=== PATIENT | male | born 1970 | race Caucasian/White ===

== ENCOUNTER → 2019-10-03 10:42 | Outpatient (BNVA) | payer MEDICAID, SELFPAY | PROVIDERS: Family Provider Family Medicine; PCP Family Medicine; Referring Provider Family Medicine; Visit Provider Podiatrist Foot & Ankle Surgery | DX: M79.672 Pain in left foot (principal); M79.89 Other specified soft tissue disorders; M20.42 Other hammer toe(s) (acquired), left foot | CPT/HCPCS: 73620; 73630 ==

== ENCOUNTER → 2019-11-20 12:34 | Outpatient (BNVA) | payer MEDICAID, SELFPAY | PROVIDERS: Family Provider Family Medicine; PCP Family Medicine; Referring Provider Family Medicine; Visit Provider Specialist | DX: G43.711 Chronic migraine without aura, intractable, with status migrainosus (principal); F17.210 Nicotine dependence, cigarettes, uncomplicated | CPT/HCPCS: 99204; 99214 ==

== ENCOUNTER → 2019-11-28 10:04 | Outpatient (BNVA) | payer MEDICAID, SELFPAY | PROVIDERS: Family Provider Family Medicine; PCP Family Medicine; Visit Provider Nurse Practitioner Psychiatric/Mental Health | DX: F33.3 Major depressive disorder, recurrent, severe with psychotic symptoms (principal); F41.1 Generalized anxiety disorder; F12.20 Cannabis dependence, uncomplicated; F17.210 Nicotine dependence, cigarettes, uncomplicated; F03.91 Unspecified dementia, unspecified severity, with behavioral disturbance | CPT/HCPCS: 99214 ==

== ENCOUNTER → 2020-01-01 08:15 | Outpatient (BNVA) | payer MEDICAID, SELFPAY | PROVIDERS: Family Provider Family Medicine; PCP Family Medicine; Visit Provider Nurse Practitioner Psychiatric/Mental Health | DX: F33.3 Major depressive disorder, recurrent, severe with psychotic symptoms (principal); F41.1 Generalized anxiety disorder; F12.20 Cannabis dependence, uncomplicated; F17.210 Nicotine dependence, cigarettes, uncomplicated; F03.91 Unspecified dementia, unspecified severity, with behavioral disturbance | CPT/HCPCS: 99214 ==

== ENCOUNTER → 2020-02-13 12:01 | Outpatient (BNVA) | payer MEDICAID, SELFPAY | PROVIDERS: Family Provider Family Medicine; PCP Family Medicine; Visit Provider Specialist | DX: G43.711 Chronic migraine without aura, intractable, with status migrainosus (principal); F17.210 Nicotine dependence, cigarettes, uncomplicated | CPT/HCPCS: 99213 ==

== ENCOUNTER → 2020-02-15 08:05 | Outpatient (BNVA) | payer MEDICAID, SELFPAY | PROVIDERS: Family Provider Family Medicine; PCP Family Medicine; Visit Provider Nurse Practitioner Psychiatric/Mental Health | DX: F33.3 Major depressive disorder, recurrent, severe with psychotic symptoms (principal); F41.1 Generalized anxiety disorder; F12.20 Cannabis dependence, uncomplicated; F17.210 Nicotine dependence, cigarettes, uncomplicated; F03.91 Unspecified dementia, unspecified severity, with behavioral disturbance | CPT/HCPCS: 99214 ==

== ENCOUNTER → 2020-03-06 09:42 | Outpatient (BNVA) | payer MEDICAID, SELFPAY | PROVIDERS: Family Provider Family Medicine; PCP Family Medicine; Visit Provider Specialist | DX: G43.711 Chronic migraine without aura, intractable, with status migrainosus (principal) | CPT/HCPCS: 64615; J0585 ==

== ENCOUNTER → 2020-03-21 07:41 | Outpatient (BNVA) | payer MEDICAID, SELFPAY | PROVIDERS: Family Provider Family Medicine; PCP Family Medicine; Visit Provider Nurse Practitioner Psychiatric/Mental Health | DX: F33.3 Major depressive disorder, recurrent, severe with psychotic symptoms (principal); F41.1 Generalized anxiety disorder; F17.210 Nicotine dependence, cigarettes, uncomplicated; F13.11 Sedative, hypnotic or anxiolytic abuse, in remission; F12.20 Cannabis dependence, uncomplicated; F03.91 Unspecified dementia, unspecified severity, with behavioral disturbance | CPT/HCPCS: 99214 ==

== ENCOUNTER 2020-03-27 11:22 | Inpatient (IN) | payer MEDICAID, SELFPAY ==
[2020-03-27 11:25] VITALS: BP 164/95; PULSE 71; RESP 16; TEMP 36.7; O2SAT 98; BMI 25.8
[2020-03-27 11:45] LABS: Basophils % 0.5 %; Eosinophils # 0.1 10^3/uL (0.0-0.8); Eosinophils % 1.1 %; Hematocrit 45.9 % (42.0-52.0); Hemoglobin 15.7 g/dL (11.7-16.6); Lymphocytes # 2.4 10^3/uL (0.8-4.8); Lymphocytes % 38.7 %; Mean Corpuscular HGB Conc 34.2 g/dL (30.0-36.0); Mean Corpuscular Hemoglobin 30.4 pg (28.0-34.0); Monocytes # 0.5 10^3/uL (0.2-0.9); Monocytes % 8.2 %; Neutrophils # 3.19 10^3/uL (1.8-7.7); Neutrophils % 51.3 %; Nucleated Red Blood Cells % 0 %; Platelet Count 277 10^3/cmm (130-400); Red Blood Count 5.16 10^6/uL (4.1-5.3); Red Cell Distribution Width 12.8 % (12.1-15.1); White Blood Count 6.2 10^3/uL (4.0-10.0)
[2020-03-27 12:00] LABS: Alanine Aminotransferase 10 U/L (0-41); Alkaline Phosphatase 87 IU/L (40-130); Anion Gap 14.7 (5-19); Aspartate Amino Transferase 13 U/L (0-40); Blood Urea Nitrogen 6 mg/dL (6-20); Calcium 9.4 mg/dL (8.5-10.5); Carbon Dioxide 24 mmol/L (22-29); Chloride 102 mmol/L (98-107); Globulin 2.1 g/dL (1.3-4.6); Glomerular Filtration Rate 102.7 mL/min (90-130); Glucose 109 mg/dL (65-115); Osmolality Calculated 280 mOsm/kg (285-295); Potassium 3.7 mmol/L (3.5-5.1); Sodium 137 mmol/L (136-145); Total Bilirubin 0.4 mg/dL (0.15-1.2); Total Protein 7.1 g/dL (6.6-8.7)
[2020-03-27 12:03] LABS: Amphetamines Screen Urine Negative (Negative); Barbiturates Screen Urine Negative (Negative); Benzodiazepines Screen Urine Negative (Negative); Cocaine Screen Urine Negative (Negative); Opiate Screen Urine Negative (Negative); PCP Screen Urine Negative (Negative); THC Screen Urine Positive (Negative)
--- NOTE | 2020-03-27 12:14 | ED_ITS ---
HPI - Psych General: Chief Complaint: Psychiatric Symptoms Stated Complaint: SI Time Seen by Provider: 03/27/20 11:24 History of Present Illness: HPI Narrative: Patient reports suicidal thoughts for the past several days. He also has auditory and visual hallucinations. He hears voices telling him to kill himself. He also sees people that he knows are not there. MD complaint: suicidal ideation and feels depressed Onset (ago): day(s) Duration: constant and getting worse History of same: No Relieving factors: none Exacerbating factors: none Context: recent drug abuse Associated psychiatric symptoms: depression, suicidal ideation, auditory hallucinations and visual hallucinations Associated symptoms: Reports auditory hallucinations, visual hallucinations, depression and suicidal ideation Treatments prior to arrival: none If self harm: admits thoughts of self harm Review of Systems General: Reports: 10 or more systems reviewed and unremarkable except in HPI and below Psych: Reports: depression, visual hallucinations, auditory hallucinations and suicidal ideation PFS ED PFSH: Medical History Anxiety Benzodiazepine abuse in remission In early remission Cannabis dependence, continuous Dementia Depression Generalized anxiety disorder Major depressive disorder, recurrent episode with mood-congruent psychotic features Nicotine dependence, cigarettes, uncomplicated Family History Other CAD (coronary artery disease) Cancer Diabetes Hypertension Denies family history of Stroke Social History Smoking and tobacco status: current every day smoker cigarettes Packs smoked per day: 0.5 Alcohol intake: never History of recent travel: Yes (travels from [facility]) Physical Exam Const: COMMON NORMALS: no acute distress, patient oriented x3, no limitations and alert HENMT: COMMON NORMALS: normocephalic, atraumatic, external ears normal and Normal external nose present HEAD & SCALP: normocephalic and atraumatic FACE & SINUS: normal facial exam NOSE: Normal external nose present EX TERNAL EAR: Yes external ears normal MOUTH: Normal oral and palatal mucosa present Neck/C-Spine: COMMON NORMALS: full ROM, no lymphadenopathy, supple, no meningeal signs and no JVD GENERAL: Yes normal visual inspection Resp: COMMON NORMALS: normal respiratory effort, No retractions, No use of accessory muscles and clear to auscultation bilaterally AUSCULTATION: clear to auscultation bilaterally Cardio: COMMON NORMALS: no JVD, regular rate and regular rhythm RATE: re gular rate RHYTHM: regular rhythm GI: COMMON NORMALS: Normal to inspection, nondistended, normoactive bowel sounds present, Soft to palpation, non-tender, No hepatosplenomegaly present and no masses INSPECTION: Yes normal to inspection AUSCULTATION: Yes normoactive bowel sounds PALPATION: Yes Soft to palpation and Yes No hepatosplenomegaly present PERCUSSION: normal to percussion : COMMON NORMALS: Yes no CVA tenderness BLADDER/KIDNEY EXAM: Yes no CVA tenderness Back/Pelvis: COMMON NORMALS: no CVA tenderness, thoracic and lumbar spine normal to inspection, no thoracic nor lumbar tenderness, thoraco-lumbar ROM normal and straight leg raise negative bilaterally Extremity: COMMON NORMALS: normal to inspection, full ROM, capillary refill normal, no joint enlargement, no clubbing, cyanosis or edema, no calf tenderness and no pedal edema Neuro: COMMON NORMALS: patient oriented x3, moves all extremities, no focal motor deficits and no sensory deficits noted SENSORIUM/ORIENTATION: Yes alert MENINGEAL SIGNS: Yes no meningeal signs Psych: COMMON NORMALS: mental status grossly normal, cooperative and speech normal APPEARANCE: Yes grossly normal ATTITUDE: Yes calm and Yes Withdrawn affect present ACTIVITY/MOTOR BEHAVIOR: Yes appropriate eye contact and Yes p sychomotor slowing SPEECH: Yes normal speech MOOD & AFFECT: Yes depressed mood THOUGHT CONTENT: Yes Suicidality present and Yes Hallucination(s) present ATTENTION/CONCENTRATION: Yes attention grossly intact and Yes concentration grossly intact MEMORY/COGNITION: Yes memory grossly intact and Yes memory grossly impaired INSIGHT: Good insight present (Psych) JUDGEMENT: questionable Skin: COMMON NORMALS: no rashes or lesions noted, no wounds, turgor normal, no jaundice, no petechiae and no mottling GENERAL SKIN EXAM: no rashes or lesion s noted and turgor normal MDM - Psych Lab Data: Labs: Lab Results 03/27/20 03/27/20 03/27/20 Range/Units 11:29 11:29 11:46 WBC 6.2 (4.0-10.0) 10^3/ uL RBC 5.16 (4.1-5.3) 10^6/u L Hgb 15.7 (11.7-16.6) g/dL Hct 45.9 (42.0-52.0) % MCV 89.0 (80-94) fL MCH 30.4 (28.0-34.0) pg MCHC 34.2 (30.0-36.0) g/dL RDW 12.8 (12.1-15.1) % Plt Count 277 (130-400) 10^3/c mm MPV 10.0 (7.4-10.4) fL Neut % (Auto) 51.3 % Lymph % (Auto) 38.7 % Sunflower % (Auto) 8.2 % Eos % (Auto) 1.1 % Baso % (Auto) 0.5 % Neut # (Auto) 3.19 (1.8-7.7) 10^3/u L Lymph # (Auto) 2.4 (0.8-4.8) 10^3/u L Sunflower # (Auto) 0.5 (0.2-0.9) 10^3/u L Eos # (Auto) 0.1 (0.0-0.8) 10^3/u L Baso # (Auto) 0.0 (0.0-0.1) 10^3/u L Nucleated RBC % (a uto) 0 % Nucleated RBCs # 0.0 /100WBC Sodium 137 (136-145) mmol/L Potassium 3.7 (3.5-5.1) mmol/L Chloride 102 (98-107) mmol/L Carbon Dioxide 24 (22-29) mmol/L Anion Gap 14.7 (5-19) BUN 6 (6-20) mg/dL Creatinine 0.8 (0.7-1.2) mg/dL GFR Calculation 102.7 (90-130) mL/min Glucose 109 (65-115) mg/dL Calculated Osmolal ity 280 L (285-295) mOsm/k g Calcium 9.4 (8.5-10.5) mg/dL Total Bilirubin 0.4 (0.15-1.2) mg/dL AST 13 (0-40) U/L ALT 10 (0-41) U/L Alkaline Phosphata se 87 (40-130) IU/L Total Protein 7.1 (6.6-8.7) g/dL Albumin 5.0 (3.5-5.2) g/dL Globulin 2.1 (1.3-4.6) g/dL Salicylates < 0.3 L (3-10) mg/dL Urine Opiates Scre en Negative (Negative) ng/mL Acetaminophen < 5.0 L (10-30) ug/mL Ur Barbiturates Sc reen Negative (Negative) ng/mL Ur Phencyclidine S crn Negative (Negative) ng/mL Ur Amphetamines Sc reen Negative (Negative) ng/mL U Benzodiazepines Scrn Negative (Negative) ng/mL Urine Cocaine Scre en Negative (Negative) ng/mL U Marijuana (THC) Screen Positive H (Negative) ng/mL Ethyl Alcohol < 10 (0-10) mg/dL Discharge Plan Discharge Patient Disposition: Admitted As Inpatient Clinical Impression: Acute psychosis, Suicidal ideation Depression Qualifiers: Depression Type: major depressive disorder Major depression recurrence: unspecified whether recurrent Active/Remission status: currently active Major depression episode severity: severe Psychotic features: with psychotic features Qualified Code(s): F32.3 - Major depressive disorder, single episode, severe with psychotic features Condition: Fair Referrals: Kevin Tovar MD [Primary Care Provider] - Coding Level of Care Code ED Can Doffer for g Fwd Exam Comprehensive
[2020-03-27 12:17] LABS: Acetaminophen < 5.0 ug/mL (10-30); Alcohol Level < 10 mg/dL (0-10); Salicylate < 0.3 mg/dL (3-10)
[2020-03-27 12:51] VITALS: BP 150/93; PULSE 78; RESP 18; O2SAT 96
[2020-03-27 13:27] VITALS: BP 132/80; PULSE 79; RESP 18; TEMP 36.7; O2SAT 98
[2020-03-27] MEDS: nicotine 21 mg Patch 1 PATCH TRANSDERMA (13:34)
[2020-03-27] MEDS: OLANZapine 5 mg ODT PO (13:47)
--- NOTE | 2020-03-27 13:47 | PC.NURSE ---
PT NOTE: PT GIVEN ZYPREXA ZYDIS 5MG PO FOR ANXIETY.
[2020-03-27] MEDS: lactulose oral liq 20 gm/30 mL UDC PO (18:37)
[2020-03-27] MEDS: propranolol 20 mg Tablet PO (18:37)
[2020-03-27 20:26] VITALS: BP 135/83; PULSE 68; RESP 17; TEMP 36.5; O2SAT 97
[2020-03-27] MEDS: hyDROXYzine 25 mg Capsule 50 MG PO (21:02)
[2020-03-27] MEDS: mirtazapine 30 mg Tablet PO (21:03)
[2020-03-27] MEDS: risperiDONE 2 mg Tablet PO (21:03)
[2020-03-27] MEDS: gabapentin 300 mg Capsule PO (21:03)
[2020-03-27] MEDS: trazodone 50 mg Tablet PO (21:03)
--- NOTE | 2020-03-28 04:15 | PC.NURSE ---
pt given PRN trazodone, vistaril and nicorette gum with HS meds per request. no behavior issues noted.
[2020-03-28 06:00] VITALS: BP 161/93; PULSE 73; RESP 17; TEMP 36.8; O2SAT 97
[2020-03-28] MEDS: memantine 5 mg tablet 10 MG PO (06:02)
[2020-03-28] MEDS: buPROPion XL (24 HR) 150 mg Tablet PO (06:02)
[2020-03-28] MEDS: buPROPion XL (24 HR) 300 mg Tablet PO (06:02)
[2020-03-28] MEDS: lactulose oral liq 20 gm/30 mL UDC PO ×2 (06:02→17:44)
[2020-03-28] MEDS: propranolol 20 mg Tablet PO ×2 (08:22→17:44)
[2020-03-28] MEDS: pantoprazole DR 40 mg Tablet PO (08:23)
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
[2020-03-28 14:00] VITALS: BP 133/86; PULSE 79; RESP 18; TEMP 36.8; O2SAT 98
[2020-03-28] MEDS: gabapentin 100 mg Capsule PO ×2 (14:17→17:44)
[2020-03-28] MEDS: nicotine 2 mg Gum BUCCAL (20:10)
[2020-03-28 20:24] VITALS: BP 156/94; PULSE 79; RESP 17; TEMP 36.6; O2SAT 96
[2020-03-28] MEDS: risperiDONE 2 mg Tablet PO (20:33)
[2020-03-28] MEDS: mirtazapine 30 mg Tablet PO (20:33)
[2020-03-28] MEDS: gabapentin 300 mg Capsule PO (20:33)
[2020-03-28] MEDS: hyDROXYzine 25 mg Capsule 50 MG PO (20:33)
[2020-03-28] MEDS: trazodone 50 mg Tablet PO (20:34)
[2020-03-28] MEDS: lactulose oral liq 20 gm/30 mL UDC 30 GM PO (20:42)
--- NOTE | 2020-03-28 21:33 | PC.NURSE ---
pt given scheduled HS meds and PRN nicorette gum, trazodone, vistaril, and lactulose per request.
[2020-03-28 22:00] VITALS: BP 156/94; PULSE 79; RESP 17; TEMP 36.6; O2SAT 96
[2020-03-29 06:00] VITALS: BP 130/81; PULSE 73; RESP 16; TEMP 36.6; O2SAT 97
[2020-03-29] MEDS: buPROPion XL (24 HR) 300 mg Tablet PO (06:09)
[2020-03-29] MEDS: buPROPion XL (24 HR) 150 mg Tablet PO (06:10)
[2020-03-29] MEDS: memantine 5 mg tablet 10 MG PO (06:10)
[2020-03-29] MEDS: acetaminophen 325 mg Tablet 650 MG PO ×2 (06:18→16:10)
[2020-03-29] MEDS: lactulose oral liq 20 gm/30 mL UDC 30 GM PO (09:15)
[2020-03-29] MEDS: pantoprazole DR 40 mg Tablet PO (09:16)
[2020-03-29] MEDS: propranolol 20 mg Tablet PO ×2 (09:16→18:52)
[2020-03-29] MEDS: gabapentin 100 mg Capsule PO ×2 (09:16→18:52)
[2020-03-29] MEDS: nicotine 2 mg Gum BUCCAL (10:32)
[2020-03-29] MEDS: lactulose oral liq 20 gm/30 mL UDC PO ×2 (10:34→18:53)
--- NOTE | 2020-03-29 13:13 | P.PN_ITS ---
Subjective NPU Subjective: Interval history: Soy presents today reporting that he is doing well with the added Neurontin during the day. He reports that it is helping with his anxiety. We discussed likely considering a titration tomorrow. We discussed the risks, benefits, and alternatives of that, and he understood and agreed to proceed as is documented in this note. We talked about making sure that he is setup and connected with his outpatient services, and that he is safe for discharge. Now that he has something that might bring help, he clearly was interested and understanding the timeline, before this flex o writer operator thought he might be discharged to home. Otherwise, he reports he is sleeping fine and doing a little better. Mental Status Exam MSE Comments: This is a well-nourished, well-developed, white male, with adequate dress, grooming, and eye contact. No abnormal movements, except for improving psychomotor retardation. Cooperative with exam in no acute distress. Speech was more normal rate and volume. Mood described as less anxious; affect congruent. Thought process, organized. Thought content: patient endorsed suicidal ideation; there were no delusions reported or noted, patient denied auditory and visual hallucinations. Attention, concentration, and memory appear intact but none were formally tested. He is alert and oriented times three. Insight and judgment are improving. Vitals/I&O/Wt Last Vital Signs Temp 97.9 F 03/29/20 06:00 Pulse 73 03/29/20 06:00 Resp 16 03/29/20 06:00 BP 130/81 03/29/20 06:00 Pulse Ox 97 03/29/20 06:00 Data NPU : 03/27/20 11:29 03/27/20 11:29 A&P Additional A&P Information (1) Acute psychosis: (2) Suicidal ideation: (3) Depression: (4) Benzodiazepine abuse in remission: (5) Cannabis dependence, continuous: (6) Generalized anxiety disorder: (7) Dementia: This is a 49 year old, white male, with a long history of trauma and addiction, including alcohol and other drugs, who presents endorsing depression and anxiety, but reporting improvement in his depression and anxiety, resolving lethality reports that he is doing well on the medication. RECOMMENDATION AND PLAN: Continue current medication, except: Continue Neurontin 100 mg po, will possibly increase to 300 mg tid, as he already has a 300 mg dose at night. Continue q-15 minute checks for safety. Encourage individual, group, and milieu therapy. Involuntary Hold Information 96 Hour Hold: 96 Hour Involuntary Admission: No Attestations NPU Medical Necessity Statement*: Inpatient hospitalization is medically necessary and the clinically appropriate intervention at this time. We will monitor medications and make changes as indicated. Likely length of stay is 1-3 days. Coding Level of Care Code Acute Automobile Insurance Claim Examiner for Willian Gramajo
[2020-03-29 14:00] VITALS: BP 121/85; PULSE 92; RESP 18; TEMP 37.2
[2020-03-29] MEDS: hyDROXYzine 25 mg Capsule 50 MG PO (21:13)
[2020-03-29] MEDS: mirtazapine 30 mg Tablet PO (21:13)
[2020-03-29] MEDS: gabapentin 300 mg Capsule PO (21:13)
[2020-03-29] MEDS: risperiDONE 2 mg Tablet PO (21:13)
[2020-03-29] MEDS: OLANZapine 5 mg ODT PO (21:13)
[2020-03-29 22:00] VITALS: BP 141/93; PULSE 69; RESP 19; TEMP 36.6; O2SAT 98
--- NOTE | 2020-03-30 00:55 | PC.NURSE ---
pt given scheduled HS meds as well as PRN vistaril and zyprexa per pt request.
[2020-03-30 06:00] VITALS: BP 136/90; PULSE 82; RESP 17; TEMP 36.9; O2SAT 96
[2020-03-30] MEDS: lactulose oral liq 20 gm/30 mL UDC PO (06:12)
[2020-03-30] MEDS: memantine 5 mg tablet 10 MG PO (06:12)
[2020-03-30] MEDS: buPROPion XL (24 HR) 300 mg Tablet PO (06:12)
[2020-03-30] MEDS: buPROPion XL (24 HR) 150 mg Tablet PO (06:12)
[2020-03-30] MEDS: pantoprazole DR 40 mg Tablet PO (09:19)
[2020-03-30] MEDS: gabapentin 100 mg Capsule PO (09:19)
[2020-03-30] MEDS: propranolol 20 mg Tablet PO (09:19)
[2020-03-30 11:41] VITALS: BP 136/90; PULSE 82; RESP 17; TEMP 36.9; O2SAT 96
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
== END 2020-03-30 13:15 | disposition home or self-care (01) | DRG 885 ==
LOC: ER 12:21 → NP 12:44
PROVIDERS: Physician Assistant; Admitting Provider Psychiatry & Neurology Psychiatry; PCP Family Medicine; Visit Provider Psychiatry & Neurology Psychiatry
DX: F23 Brief psychotic disorder (principal); R45.851 Suicidal ideations; F32.3 Major depressive disorder, single episode, severe with psychotic features; F11.11 Opioid abuse, in remission; F12.20 Cannabis dependence, uncomplicated; F41.1 Generalized anxiety disorder; F03.90 Unspecified dementia, unspecified severity, without behavioral disturbance, psychotic disturbance, mood disturbance, and anxiety; Z81.8 Family history of other mental and behavioral disorders; F17.210 Nicotine dependence, cigarettes, uncomplicated
CPT/HCPCS: 12345; 36415; 80053; 80306; 80307; 85025; 99284; 99285

== ENCOUNTER → 2020-04-11 08:37 | Outpatient (BNVA) | payer MEDICAID, SELFPAY | PROVIDERS: PCP Family Medicine; Visit Provider Nurse Practitioner Psychiatric/Mental Health | DX: F33.3 Major depressive disorder, recurrent, severe with psychotic symptoms (principal); F41.1 Generalized anxiety disorder; F12.20 Cannabis dependence, uncomplicated; F17.210 Nicotine dependence, cigarettes, uncomplicated; F03.91 Unspecified dementia, unspecified severity, with behavioral disturbance; F13.11 Sedative, hypnotic or anxiolytic abuse, in remission | CPT/HCPCS: 99214 ==

== ENCOUNTER → 2020-05-29 09:52 | Outpatient (BNVA) | payer MEDICAID, SELFPAY | PROVIDERS: PCP Family Medicine; Visit Provider Specialist | DX: G43.711 Chronic migraine without aura, intractable, with status migrainosus (principal) | CPT/HCPCS: 64615; J0585 ==

== ENCOUNTER → 2020-07-02 13:06 | Outpatient (BNVA) | payer MEDICAID, SELFPAY | PROVIDERS: PCP Family Medicine; Visit Provider Counselor Professional | DX: F41.1 Generalized anxiety disorder (principal); F33.2 Major depressive disorder, recurrent severe without psychotic features | CPT/HCPCS: 90832 ==

== ENCOUNTER 2020-08-11 13:48 | Emergency (ER) | payer MEDICAID, SELFPAY ==
[2020-08-11 13:52] VITALS: BP 139/89; PULSE 68; RESP 18; TEMP 36.2; O2SAT 96; BMI 26.5
--- NOTE | 2020-08-11 14:05 | ED_ITS ---
Documented by User: NORBERTO Fitzpatrick 08/11/20 16:39 HPI - Headache General: Chief Complaint: Headache Stated Complaint: MIGRAINE X 7 DAYS Time Seen by Provider: 08/11/20 13:58 History of Present Illness: HPI Narrative: Patient complains about a migraine. Has a history of migraines sees Dr. Jiménez receives Botox for that. Said this started his normal migraine 7 days ago progressively got worse. No medicine has helped him. Was at Dr. Tovar office today Dr. Tovar sent here for possible DHE treatment. Patient states that Imitrex does not work. MD elicited complaint: migraine Pertinent past history: migraines Onset (ago): day(s) Onset description: gradually Location: generalized Severity: severe Quality & Timing: aching Exacerbating factors: light and noise Relieving factors: nothing Context: occurred at rest Associated symptoms: Reports no associated symptoms; Deny chest pain, fever(s), nausea, rash or vomiting Review of Systems Const: Denies: fever(s), chills or body aches Eyes: Denies: change in vision or blurry vision ENMT: Denies: throat pain or nasal congestion Card: Denies: chest pain or dyspnea on exertion Resp: Denies: dyspnea, productive cough or non-productive cough GI: Denies: abdominal pain, nausea or vomiting : Denies: difficulty urinating Musc: Denies: extremity pain Skin/Breast: Denies: rash Neuro: Reports: headache(s) Psych: Denies: anxiety or depression Darrel/Lymph: Denies: easy bruising PFSH ED PFSH: Medical History Anxiety Benzodiazepine abuse in remission In early remission Cannabis dependence, continuous Dementia Depression Generalized anxiety disorder Major depressive disorder, recurrent episode with mood-congruent psychotic features Nicotine dependence, cigarettes, uncomplicated TBI (traumatic brain injury) Family History Other CAD (coronary artery disease) Cancer Diabetes Hypertension Denies family history of Stroke Social History Smoking and tobacco status: current every day smoker cigarettes Packs smoked per day: 0.5 Alcohol intake: never History of recent travel: Yes (travels from [facility]) Current gender identity: Male Physical Exam Const: COMMON NORMALS: no acute distress, average body habitus and patient oriented x3 HENMT: COMMON NORMALS: normocephalic HEAD & SCALP: normal to inspection and normocephalic FACE & SINUS: normal facial exam Eye: COMMON NORMALS: conjunctivae normal GENERAL EYE: appearance normal, both eyes and all related structures CONJUNCTIVA: Yes conjunctivae normal Neck/C-Spine: COMMON NORMALS: no JVD Chest: COMMONS NORMALS: normal inspection of the chest Resp: COMMON NORMALS: normal respiratory effort and clear to auscultation bilaterally AUSCULTATION: clear to auscultation bilaterally Cardio: COMMON NORMALS: no JVD, regular rate and regular rhythm RATE: regular rate RHYTHM: regular rhythm GI: COMMON NORMALS: Normal to inspection, nondistended, normoactive bowel sounds present Extremity: COMMON NORMALS: normal to inspection and full ROM Neuro: COMMON NORMALS: patient oriented x3 Course Vital Signs: Vital signs: Vital Signs Temperature 97.2 F L 08/11/20 13:52 Pulse Rate 62 08/11/20 17:30 Respiratory Rate 20 H 08/11/20 17:30 Blood Pressure 137/82 08/11/20 17:30 Pulse Oximetry 96 08/11/20 17:30 MDM - Headache MDM Narrative: Medical decision making narrative: Patient said cocktail medicines were given first not help with migraine at all and only wanted given some IV Tylenol and he says he cannot take Tylenol and not for sure whether that is Discharge Plan Discharge Patient Disposition: Home Clinical Impression: Migraine Qualifiers: Migraine type: without aura Status migrainosus presence: without status migrainosus Intractability: not intractable Qualified Code(s): G43.009 - Migraine without aura, not intractable, without status migrainosus Condition: Stable Prescriptions: No Action propranolol 20 mg tablet 20 mg PO TID PRN (Reason: anxiety) Qty: 90 RF: 2 Remeron 30 mg tablet 45 mg PO BEDTIME Qty: 45 RF: 2 Botox injection See Rx Instructions .ROUTE .COMPLEX RF: 0 ondansetron 4 mg tablet,disintegrating 4 mg PO Q6H PRN (Reason: nausea and vomiting) Qty: 18 RF: 1 lactulose 10 gram/15 mL solution 30 ml PO BID@ RF: 0 ibuprofen 200 mg Tablet 800 mg PO PRN RF: 0 bupropion HCl 150 mg tablet extended release 24 hr 150 mg PO DAILY@06 RF: 0 pantoprazole 40 mg tablet,delayed release (DR/EC) 40 mg PO DAILY@06 RF: 0 gabapentin 300 mg capsule 300 mg PO DAILY@18 RF: 0 gabapentin 100 mg capsule 100 mg PO BID@06,12 RF: 0 Namenda 10 mg tablet 10 mg PO DAILY@06 RF: 0 Rexulti 4 mg tablet 4 mg PO DAILY@06 RF: 0 Discharge Orders: Discharge ED (Routine); Ordered 08/11/20 Ordered By: Luciano Quinones Referrals: Kevin Tovar MD [Primary Care Provider] - Discharge Diet: Regular Discharge Activity: Resume usual activity Patient Instructions: Migraine Headache (ED) Activity Restrictions/Additional Instructions: Follow-up with medical provider as directed in 7 to 10 days for reevaluation. Continue taking all home medications as previously prescribed. Return to the ER or your medical provider if condition worsens. Please read and understand discharge instructions. If any questions, please ask. Sign Out Sign Out Data: Patient Sign Out occurred on 08/11/20 at 17:02. Patient's care was discussed, and care was transferred from to JUAN Mcdonald. Coding Level of Care Code ED Training Officer for Chg Fwd Exam Comprehensive Documented by User: JUAN Mcdonald 08/12/20 01:16 HPI - Headache General: Chief Complaint: Headache Stated Complaint: MIGRAINE X 7 DAYS Time Seen by Provider: 08/11/20 13:58 PFSH ED PFSH: Medical History Anxiety Benzodiazepine abuse in remission In early remission Cannabis dependence, continuous Dementia Depression Generalized anxiety disorder Major depressive disorder, recurrent episode with mood-congruent psychotic features Nicotine dependence, cigarettes, uncomplicated TBI (traumatic brain injury) Family History Other CAD (coronary artery disease) Cancer Diabetes Hypertension Denies family history of Stroke Social History Smoking and tobacco status: current every day smoker cigarettes Packs smoked per day: 0.5 Alcohol intake: never History of recent travel: Yes (travels from [facility]) Current gender identity: Male Course Reevaluation(s): Reevaluation #1: After patient received first DHE dose he says his migraine has improved and he is ready to go home. I told patient to follow-up with PCP in 7 to 10 days ending come back to the ED if he has any worsening symptoms. Vital Signs: Vital signs: Vital Signs Temperature 97.2 F L 08/11/20 13:52 Pulse Rate 62 08/11/20 17:30 Respiratory Rate 20 H 08/11/20 17:30 Blood Pressure 137/82 08/11/20 17:30 Pulse Oximetry 96 08/11/20 17:30 MDM - Headache MDM Narrative: Medical decision making narrative: I took over patient care from Shar Greenfield at 5 PM. He was sent here to the ED by his PCP for him to receive DHE to treat migraine. He had ordered DHE protocol for migraine treatment. First dose of DHE was administered and patient's migraine improved and he was ready to be discharged. Return to ED precautions given. He was told to follow-up with PCP in 7 to 10 days. Patient understood and agreed with plan. Discharge Plan Discharge Patient Disposition: Home Clinical Impression: Migraine Qualifiers: Migraine type: without aura Status migrainosus presence: without status migrainosus Intractability: not intractable Qualified Code(s): G43.009 - Migraine without aura, not intractable, without status migrainosus Condition: Stable Prescriptions: No Action propranolol 20 mg tablet 20 mg PO TID PRN (Reason: anxiety) Qty: 90 RF: 2 Remeron 30 mg tablet 45 mg PO BEDTIME Qty: 45 RF: 2 Botox injection See Rx Instructions .ROUTE .COMPLEX RF: 0 ondansetron 4 mg tablet,disintegrating 4 mg PO Q6H PRN (Reason: nausea and vomiting) Qty: 18 RF: 1 lactulose 10 gram/15 mL solution 30 ml PO BID@03,18 RF: 0 ibuprofen 200 mg Tablet 800 mg PO PRN RF: 0 bupropion HCl 150 mg tablet extended release 24 hr 150 mg PO DAILY@06 RF: 0 pantoprazole 40 mg tablet,delayed release (DR/EC) 40 mg PO DAILY@06 RF: 0 gabapentin 300 mg capsule 300 mg PO DAILY@18 RF: 0 gabapentin 100 mg capsule 100 mg PO BID@06,12 RF: 0 Namenda 10 mg tablet 10 mg PO DAILY@06 RF: 0 Rexulti 4 mg tablet 4 mg PO DAILY@06 RF: 0 Discharge Orders: Discharge ED (Routine); Ordered 08/11/20 Ordered By: Luciano Quinones Referrals: Kevin Tovar MD [Primary Care Provider] - Discharge Diet: Regular Discharge Activity: Resume usual activity Patient Instructions: Migraine Headache (ED) Activity Restrictions/Additional Instructions: Follow-up with medical provider as directed in 7 to 10 days for reevaluation. Continue taking all home medications as previously prescribed. Return to the ER or your medical provider if condition worsens. Please read and understand discharge instructions. If any questions, please ask. Sign Out Sign Out Data: Patient Sign Out occurred on 08/11/20 at 17:02. Patient's care was discussed, and care was transferred from to JUAN Mcdonald. Coding Level of Care Code ED Training Officer for Willian Fwd Exam Comprehensive
[2020-08-11] MEDS: ketorolac 30 mg/mL INJ IVP (14:51)
[2020-08-11] MEDS: ondansetron 2 mg/ML SDV 2 mL 8 MG IVP (14:52)
[2020-08-11] MEDS: diphenhydrAMINE 50 mg/mL SDV 1mL 25 MG IVP (14:52)
[2020-08-11] MEDS: sodium chloride 0.9% 1,000 ML 999 ML IV (14:53)
[2020-08-11] MEDS: dihydroergotamine 1 mg/mL Inj IVP (16:53)
[2020-08-11] MEDS: sodium chloride 0.9% (100 ml) 100 ML (17:14)
[2020-08-11 17:30] VITALS: BP 137/82; PULSE 62; RESP 20; O2SAT 96
== END 2020-08-11 17:32 | disposition home or self-care (01) ==
PROVIDERS: Emergency Provider Physician Assistant; PCP Family Medicine
DX: G43.009 Migraine without aura, not intractable, without status migrainosus (principal); F03.90 Unspecified dementia, unspecified severity, without behavioral disturbance, psychotic disturbance, mood disturbance, and anxiety; F17.210 Nicotine dependence, cigarettes, uncomplicated; Z87.820 Personal history of traumatic brain injury
CPT/HCPCS: 12345; 96361; 96374; 96375; 99282; 99283; J1110; J1200; J1885; J2405; J7030

== ENCOUNTER → 2020-08-13 10:05 | Outpatient (BNVA) | payer MEDICAID, SELFPAY | PROVIDERS: PCP Family Medicine; Visit Provider Counselor Professional | DX: F41.1 Generalized anxiety disorder (principal); F33.2 Major depressive disorder, recurrent severe without psychotic features | CPT/HCPCS: 90832 ==

== ENCOUNTER → 2020-08-21 09:55 | Outpatient (BNVA) | payer MEDICAID, SELFPAY | PROVIDERS: PCP Family Medicine; Visit Provider Specialist | DX: G43.711 Chronic migraine without aura, intractable, with status migrainosus (principal); F33.3 Major depressive disorder, recurrent, severe with psychotic symptoms; F12.20 Cannabis dependence, uncomplicated; F13.11 Sedative, hypnotic or anxiolytic abuse, in remission; F17.210 Nicotine dependence, cigarettes, uncomplicated | CPT/HCPCS: 99213 ==

== ENCOUNTER → 2020-09-17 13:25 | Outpatient (BNVA) | payer MEDICAID, SELFPAY | PROVIDERS: PCP Family Medicine; Visit Provider Counselor Professional | DX: F41.1 Generalized anxiety disorder (principal); F33.3 Major depressive disorder, recurrent, severe with psychotic symptoms | CPT/HCPCS: 90832 ==

== ENCOUNTER → 2020-09-24 10:29 | Outpatient (BNVA) | payer MEDICAID, SELFPAY | PROVIDERS: PCP Family Medicine; Visit Provider Family Medicine | DX: R04.2 Hemoptysis (principal); F17.200 Nicotine dependence, unspecified, uncomplicated | CPT/HCPCS: 86580 ==

== ENCOUNTER → 2020-10-08 12:32 | Outpatient (BNVA) | payer MEDICAID, SELFPAY | PROVIDERS: PCP Family Medicine; Visit Provider Emergency Medicine | DX: I95.1 Orthostatic hypotension (principal) | CPT/HCPCS: 80053; 83880; 84443; 85025 ==

== ENCOUNTER → 2020-11-12 10:42 | Outpatient (BNVA) | payer MEDICAID, SELFPAY | PROVIDERS: PCP Family Medicine; Visit Provider Registered Nurse | DX: R55 Syncope and collapse (principal); F33.3 Major depressive disorder, recurrent, severe with psychotic symptoms; F41.1 Generalized anxiety disorder; F13.11 Sedative, hypnotic or anxiolytic abuse, in remission; F12.20 Cannabis dependence, uncomplicated; F17.210 Nicotine dependence, cigarettes, uncomplicated; F03.91 Unspecified dementia, unspecified severity, with behavioral disturbance | CPT/HCPCS: 36415; 80053; 80061; 82306; 82607; 82746; 83036; 83880; 84443 ==

== ENCOUNTER 2020-11-23 10:39 | Emergency (ER) | payer MEDICAID, SELFPAY ==
[2020-11-23 10:40] VITALS: BP 136/86; PULSE 67; RESP 18; TEMP 36.5; O2SAT 98; BMI 25.2
--- NOTE | 2020-11-23 11:29 | ED_ITS ---
HPI - Nausea/Vomiting/Diarrhea General: Chief complaint: Nausea/Vomiting/Diarrhea Stated complaint: STATES BLOODY EMESIS Time Seen by Provider: 11/23/20 11:19 Source: patient Mode of arrival: EMS History of Present Illness: HPI Narrative: 50-year-old male with persistent abdominal pain, nausea, vomiting, decreased appetite and increasingly frequent episodes of coffee-ground emesis over the past several weeks. He has been prescribed pantoprazole 40 mg daily, which she says he is is taking regularly, but it has not been helping. MD elicited complaint: nausea, vomiting, diarrhea and abdominal pain Pertinent past history: anorexia and cyclical vomiting Onset (ago): minute(s) Associated nausea: Yes Associated symtoms: Reports anxiety, bloating, malaise and nausea; Denies change in vision, chest pain, dysuria or headache(s) Review of Systems General: Reports: 10 or more systems reviewed and unremarkable except in HPI and below Const: Reports: change in appetite, fatigue and malaise; Denies: fever(s), chills or body aches Eyes: Denies: change in vision or blurry vision ENMT: Denies: throat pain or odynophagia Card: Denies: chest pain, irregular heart rhythm or edema Resp: Denies: dyspnea, non-productive cough or wheezing GI: Reports: abdominal pain, nausea, vomiting, coffee ground emesis, heartburn, bloating and belching; Denies: dysphagia : Denies: flank pain, difficulty urinating or dysuria Musc: Denies: neck pain, back pain, extremity pain or extremity swelling Skin/Breast: Denies: rash, pruritus or erythema Neuro: Denies: headache(s), numbness in extremities or weakness in extremities Psych: Reports: anxiety Darrel/Lymph: Denies: easy bruising or easy bleeding PFSH ED PFSH: Medical History Anxiety Benzodiazepine abuse in remission In early remission Cannabis dependence, continuous Coughing up blood Dementia Depression Generalized anxiety disorder Major depressive disorder, recurrent episode with mood-congruent psychotic features Nicotine dependence, cigarettes, uncomplicated Orthostatic hypotension Syncope TBI (traumatic brain injury) Family History Other CAD (coronary artery disease) Cancer Diabetes Hypertension Denies family history of Stroke Social History Smoking and tobacco status: current every day smoker cigarettes Packs smoked per day: 0.5 Alcohol intake: never History of recent travel: Yes (travels from [facility]) Current gender identity: Male Physical Exam Const: COMMON NORMALS: no acute distress, patient oriented x3 and alert GENERAL APPEARANCE: cooperative, comfortable and well kempt; not in distress, not anxious, not lethargic and not ill appearing ORIEN TATION/CONSCIOUSNESS: Yes oriented to person, Yes oriented to place and Yes oriented to time; not lethargic HENMT: COMMON NORMALS: normocephalic and atraumatic HEAD & SCALP: normocephalic and atraumatic FACE & SINUS: normal facial exam and face symmetric Eye: COMMON NORMALS: Equal, round and reactive pupils present, EOMs intact bilaterally, conjunctivae normal and no scleral icterus CONJUNCTIVA: Yes conjunctivae normal PUPIL: Yes Equal, round and reactive pupils present Neck/C-Spine: COMMON NORMALS: full ROM, no lymphadenopathy, supple and no JVD Chest: COMMONS NORMALS: normal inspection of the chest and normal palpation of entire chest wall CHEST: No rash Resp: COMMON NORMALS: normal respiratory effort, No retractions and No use of accessory muscles EFFORT & INSPECTION: Yes able to speak in complete sentences Cardio: COMMON NORMALS: no JVD, regular rate, regular rhythm, S1 normal heart sound present and S2 normal heart sound present RATE: regular rate RHYTHM: regular rhythm HEART SOUNDS: S1 normal heart sound present and S2 normal heart sound present GI: COMMON NORMALS: Soft to palpation INSPECTION: No abdominal wall ecchymosis, No Abdominal wall edema, No central obesity, No Fluid wave present, No Localized GI swelling present and No GI erythema present AUSCULTATION: Yes Hyperactive bowel sounds present PALPATION: Yes Soft to palpation and Yes Tenderness to palpation present (GI) (Epigastrium) PERCUSSION: no fluid wave Extremity: COMMON NORMALS: normal to inspection, full ROM, capillary refill normal and no clubbing, cyanosis or edema Neuro: ERLIN COMA SCALE: document GCS findings COMMON NORMALS: patient oriented x3 SENSORIUM/ORIENTATION: Yes alert, Yes oriented to person, Yes oriented to place, Yes oriented to time and No lethargic Psych: APPEARANCE: Yes well kempt Skin: COMMON NORMALS: no rashes or lesions noted, no wounds, turgor normal and no jaundice GENERAL SKIN EXAM: no rashes or lesions noted and turgor normal Course Vital Signs: Vital signs: Vital Signs Temperature 97.7 F 11/23/20 10:40 Pulse Rate 62 11/23/20 13:40 Respiratory Rate 14 11/23/20 13:40 Blood Pressure 123/86 11/23/20 13:40 Pulse Oximetry 97 11/23/20 13:40 MDM - Nausea/Vomiting/Diarrhea MDM Narrative: Medical decision making narrative: 50-year-old male with chronic abdominal pain, vomiting-at least once weekly, often with coffee grounds, decreased appetite, and nausea. He gave a history of being diagnosed with cirrhosis, he used to drink heavily, but has been sober for many years. His medication list included lactulose and propranolol, but he denied ever being told he had esophageal or gastric varices. He denied any history of GI bleed. His CBC and chemistry were completely normal. CT abdomen pelvis showed nonspecific findings in the liver, but no signs of cirrhosis or portal hypertension. Since he has frequent diarrhea, I told him he can probably stop taking the lactulose as it appears his liver has recovered significantly. Most likely his symptoms are result of cannabinoid associated hyperemesis syndrome which I explained in great detail with the patient and his . He is a medical marijuana user and has been for many years, but I urged him to experiment by stopping for period of 2 weeks to see if his GI symptoms improved. In the meantime since he does appear to have some gastritis with bleeding, I will recommend that he increase his Protonix to twice daily for the next 2 to 4 weeks. He does need to follow-up as scheduled to discuss endoscopy. Strict instructions to return immediately if he develop fever, worsening pain, or if he was unable to keep down liquids. Differential Diagnosis: N/V/D differential diagnosis: Likely drug-induced nausea and vomiting and dehydration Medical Records: Attestation: I reviewed the patient's medical records. Lab Data: Attestation: I reviewed the patient's lab results. Labs: Lab Results 11/23/20 11/23/20 11/23/20 Range/Units 11:40 11:40 11:40 WBC 7.9 (4.0-10.0) 10^3/ uL RBC 5.44 H (4.1-5.3) 10^6/u L Hgb 16.2 (11.7-16.6) g/dL Hct 48.4 (42.0-52.0) % MCV 89.0 (80-94) fL MCH 29.8 (28.0-34.0) pg MCHC 33.5 (30.0-36.0) g/dL RDW 12.3 (12.1-15.1) % Plt Count 261 (130-400) 10^3/c mm MPV 10.6 H (7.4-10.4) fL Neut % (Auto) 61.0 % Lymph % (Auto) 31.5 % [place] % (Auto) 6.0 % Eos % (Auto) 0.9 % Baso % (Auto) 0.5 % Neut # (Auto) 4.80 (1.8-7.7) 10^3/u L Lymph # (Auto) 2.5 (0.8-4.8) 10^3/u L [place] # (Auto) 0.5 (0.2-0.9) 10^3/u L Eos # (Auto) 0.1 (0.0-0.8) 10^3/u L Baso # (Auto) 0.0 (0.0-0.1) 10^3/u L Nucleated RBC % (a uto) 0 % Nucleated RBCs # 0.0 /100WBC PT 13.50 (12.1-14.9) SECO NDS INR 1.00 (0.8-1.2) Sodium 140 (136-145) mmol/L Potassium 4.1 (3.5-5.1) mmol/L Chloride 106 (98-107) mmol/L Carbon Dioxide 25 (22-29) mmol/L Anion Gap 13.1 (5-19) BUN 9 (6-20) mg/dL Creatinine 0.7 (0.7-1.2) mg/dL GFR Calculation 119.4 (90-130) mL/min Glucose 104 (65-115) mg/dL Calculated Osmolal ity 289 (285-295) mOsm/k g Calcium 9.5 (8.5-10.5) mg/dL Total Bilirubin 0.2 (0.15-1.2) mg/dL AST 14 (0-40) U/L ALT 22 (0-41) U/L Alkaline Phosphata se 90 (40-130) IU/L Total Protein 6.8 (6.6-8.7) g/dL Albumin 4.5 (3.5-5.2) g/dL Globulin 2.3 (1.3-4.6) g/dL Lipase 19 (13-60) U/L Ethyl Alcohol < 10 (0-10) mg/dL Discharge Plan Discharge Patient Disposition: Home Clinical Impression: Gastritis and gastroduodenitis with hemorrhage, Cannabinoid hyperemesis syndrome GERD (gastroesophageal reflux disease) Qualifiers: Esophagitis presence: without esophagitis Qualified Code(s): K21.9 - Gastro- esophageal reflux disease without esophagitis Nausea and vomiting Qualifiers: Vomiting type: unspecified Vomiting Intractability: intractable Qualified Code(s): R11.2 - Nausea with vomiting, unspecified Condition: Stable Prescriptions: New pantoprazole 40 mg tablet,delayed release (DR/EC) 40 mg PO BID 30 Days Qty: 60 RF: 0 ondansetron 8 mg tablet,disintegrating 8 mg PO Q12H PRN (Reason: nausea and vomiting) 5 Days Qty: 30 RF: 0 Held lactulose 10 gram/15 mL solution 30 ml PO BID@06,18 RF: 0 Hold Instructions: Doctor's Order Discontinued propranolol 20 mg tablet 20 mg PO TID PRN (Reason: anxiety) Qty: 90 RF: 2 ibuprofen 200 mg Tablet 800 mg PO PRN RF: 0 pantoprazole 40 mg tablet,delayed release (DR/EC) 40 mg PO DAILY@06 RF: 0 No Action promethazine 25 mg tablet 25 mg PO Q4H PRN (Reason: nausea and vomiting) Qty: 20 RF: 1 olanzapine [Zyprexa Zydis] 10 mg tablet,disintegrating 10 mg PO DAILY PRN (Reason: psychosis or agitation) Qty: 30 RF: 0 sucralfate [Carafate] 1 gram tablet 1 g PO BID Qty: 14 RF: 0 Rexulti 4 mg tablet 4 mg PO DAILY@0600 RF: 0 Vitamin B-12 1 tab PO DAILY@0600 RF: 0 Vitamin D3 1 tab PO DAILY@0600 RF: 0 Remeron 30 mg tablet 45 mg PO BEDTIME@0800 RF: 0 gabapentin 300 mg capsule 300 mg PO TID@0600,1200,1800 RF: 0 hydroxyzine pamoate 25 mg capsule 50 mg PO TID@0600,1200,1800 PRN (Reason: anxiety) RF: 0 Namenda 10 mg tablet 10 mg PO DAILY@0600 RF: 0 Vraylar 6 mg capsule 6 mg PO DAILY@0600 RF: 0 Discharge Orders: Discharge ED (Routine); Ordered 11/23/20 Ordered By: Tasha Yuen Referrals: Kevin Tovar MD [Primary Care Provider] - Discharge Diet: Advance as tolerated Discharge Activity: Increase activity as tolerated Patient Instructions: Gastritis (ED), Diet for Ulcers and Gastritis (ED) Activity Restrictions/Additional Instructions: Call to schedule follow-up appointment with your primary care doctor soon as possible if you do not already have one scheduled. Start taking pantoprazole twice daily instead of just once. Since your symptoms are the worst in the morning, consider taking the sucralfate at bedtime and again during the night if you wake up. Consider discontinuing marijuana for trial period of 1 to 2 weeks to see if your symptoms improve at all. Return immediately to the ER if your pain worsens, you develop a fever, you are unable to keep any liquids down, or you start to vomit large amounts of blood. Coding Level of Care Code ED [employer] for Willian Gramajo
[2020-11-23 11:45] VITALS: BP 136/79; PULSE 73; RESP 14; O2SAT 97
[2020-11-23] MEDS: lactated ringers 1,000 ML 999 ML IV (11:46)
[2020-11-23] MEDS: pantoprazole DR 40 mg Tablet XX (11:49)
[2020-11-23 11:50] LABS: Basophils % 0.5 %; Eosinophils # 0.1 10^3/uL (0.0-0.8); Eosinophils % 0.9 %; Hematocrit 48.4 % (42.0-52.0); Hemoglobin 16.2 g/dL (11.7-16.6); Lymphocytes # 2.5 10^3/uL (0.8-4.8); Lymphocytes % 31.5 %; Mean Corpuscular HGB Conc 33.5 g/dL (30.0-36.0); Mean Corpuscular Hemoglobin 29.8 pg (28.0-34.0); Mean Platelet Volume 10.6 fL (7.4-10.4); Monocytes # 0.5 10^3/uL (0.2-0.9); Nucleated Red Blood Cells % 0 %; Platelet Count 261 10^3/cmm (130-400); Red Blood Count 5.44 10^6/uL (4.1-5.3); Red Cell Distribution Width 12.3 % (12.1-15.1); White Blood Count 7.9 10^3/uL (4.0-10.0)
[2020-11-23] MEDS: ondansetron 2 mg/ML SDV 2 mL 4 MG IVP (11:50)
--- NOTE | 2020-11-23 11:58 | CTR_ITS ---
PROCEDURE INFORMATION: Exam: CT Abdomen And Pelvis With Contrast Exam date and time: 11/23/2020 12:06 PM Age: 50 years old Clinical indication: Other: Throwing up blood; Additional info: Hematemesis, HX of cirrhosis? Epigastric pain TECHNIQUE: Imaging protocol: Computed tomography of the abdomen and pelvis with contrast. Radiation optimization: All CT scans at this facility use at least one of these dose optimization techniques: automated exposure control; mA and/or kV adjustment per patient size (includes targeted exams where dose is matched to clinical indication); or iterative reconstruction. Contrast material: OMNI 300; Contrast volume: 95 ml; Contrast route: INTRAVENOUS (IV); COMPARISON: [facility] Abdomen Limited 05/18/2018 9:13 AM RADIATION DOSE METRICS: Total DLP (mGy-cm): 1422.08 FINDINGS: Liver: There is tiny hypodense lesions scattered throughout the liver, which are too small to characterize. No CT evidence of cirrhosis. Gallbladder and bile ducts: Normal. No calcified stones. No ductal dilation. Pancreas: Normal. No ductal dilation. Spleen: Normal. No splenomegaly. Adrenal glands: Normal. No mass. Kidneys and ureters: Normal. No hydronephrosis. Stomach and bowel: There is diverticulosis without evidence of diverticulitis. No bowel obstruction or inflammation. Appendix: No evidence of appendicitis. Intraperitoneal space: Unremarkable. No free air. No significant fluid collection. Vasculature: Mild diffuse atherosclerotic disease is present. No gastric or gastroesophageal varices identified. Lymph nodes: Unremarkable. No enlarged lymph nodes. Urinary bladder: Unremarkable as visualized. Reproductive: Unremarkable as visualized. Bones/joints: Unremarkable. No acute fracture. Soft tissues: Unremarkable. CT/CT abdomen pelvis w con* [id number] IMPRESSION: 1. No evidence of acute intra-abdominal or intrapelvic pathology. 2. No CT evidence of cirrhosis or portal hypertension. Radiation Dose CTDIVOL = (mGy): DLP = 1422.08 (mGy-cm)
[2020-11-23 12:12] LABS: Alanine Aminotransferase 22 U/L (0-41); Albumin Level 4.5 g/dL (3.5-5.2); Alkaline Phosphatase 90 IU/L (40-130); Anion Gap 13.1 (5-19); Aspartate Amino Transferase 14 U/L (0-40); Blood Urea Nitrogen 9 mg/dL (6-20); Calcium 9.5 mg/dL (8.5-10.5); Carbon Dioxide 25 mmol/L (22-29); Chloride 106 mmol/L (98-107); Creatinine Clr Calc Pharmacy 135.2371; Globulin 2.3 g/dL (1.3-4.6); Glomerular Filtration Rate 119.4 mL/min (90-130); Glucose 104 mg/dL (65-115); Lipase 19 U/L (13-60); Osmolality Calculated 289 mOsm/kg (285-295); Potassium 4.1 mmol/L (3.5-5.1); Sodium 140 mmol/L (136-145); Total Bilirubin 0.2 mg/dL (0.15-1.2); Total Protein 6.8 g/dL (6.6-8.7)
[2020-11-23] MEDS: iohexol 300 mg/mL 100 mL Btl IV (12:17)
[2020-11-23 12:19] LABS: Alcohol Level < 10 mg/dL (0-10)
[2020-11-23 12:32] VITALS: BP 132/87; PULSE 69; RESP 14; O2SAT 97
[2020-11-23 13:40] VITALS: BP 123/86; PULSE 62; RESP 14; O2SAT 97
== END 2020-11-23 14:20 | disposition home or self-care (01) ==
PROVIDERS: Emergency Provider Family Medicine; PCP Family Medicine
DX: K29.91 Gastroduodenitis, unspecified, with bleeding (principal); K29.71 Gastritis, unspecified, with bleeding; F12.90 Cannabis use, unspecified, uncomplicated; R11.2 Nausea with vomiting, unspecified; K21.9 Gastro-esophageal reflux disease without esophagitis
CPT/HCPCS: 74177; 80053; 80307; 83690; 85025; 85610; 96361; 96374; 96375; 99284; J2405; Q9967

== ENCOUNTER → 2021-11-12 13:29 | Outpatient (BNVA) | payer MEDICAID, SELFPAY | PROVIDERS: PCP Family Medicine; Visit Provider Registered Nurse | DX: Z79.899 Other long term (current) drug therapy (principal) | CPT/HCPCS: 80053; 80061; 82306; 83036; 85025 ==

== ENCOUNTER → 2022-01-07 07:58 | Outpatient (BNVA) | payer MEDICAID, SELFPAY | PROVIDERS: PCP Family Medicine; Visit Provider Nurse Practitioner Psychiatric/Mental Health | DX: F31.5 Bipolar disorder, current episode depressed, severe, with psychotic features (principal); F41.1 Generalized anxiety disorder; F12.20 Cannabis dependence, uncomplicated; Z59.00 Homelessness unspecified | CPT/HCPCS: 99214 ==

== ENCOUNTER → 2022-02-22 08:00 | Outpatient (BNVA) | payer MEDICAID, SELFPAY | PROVIDERS: PCP Family Medicine; Visit Provider Nurse Practitioner Psychiatric/Mental Health | DX: F31.5 Bipolar disorder, current episode depressed, severe, with psychotic features (principal); F41.1 Generalized anxiety disorder; F12.20 Cannabis dependence, uncomplicated; Z59.00 Homelessness unspecified | CPT/HCPCS: 99214 ==

== ENCOUNTER 2022-04-14 09:26 | Emergency (ER) | payer MEDICAID, SELFPAY ==
[2022-04-14 09:52] VITALS: BP 170/67; PULSE 58; RESP 20; TEMP 36.6; O2SAT 100; BMI 22.9
--- NOTE | 2022-04-14 10:26 | ECG_ITS ---
[facility] Test Date: 2022-04-14 Pat Name: Soy Zuñiga Department: Room: Gender: Male [employer]: : 1970 Requested By: Luciano Quinones Order Number: [id number] MD: Vivi Mancuso M.D. Measurements Intervals [place] Rate: 51 P: 82 W[place]: 137 QRS: 97 QRSD: 94 T: 71 QT: 432 QTc: 400 Interpretive Statements SINUS BRADYCARDIA POSSIBLE LEFT ATRIAL ENLARGEMENT [-0.1mV P-WAVE IN V1/V2] BORDERLINE RIGHT AXIS DEVIATION [QRS AXIS > 90] SEPTAL MYOCARDIAL INFARCTION , OF INDETERMINATE AGE [40+ ms Q WAVE IN V1/V2] No previous ECG available for comparison Electronically Signed On 04-15-2022 18:48:53 CDT by Vivi Mancuso M.D. [id number]
--- NOTE | 2022-04-14 10:27 | ED_ITS ---
HPI - Abdominal Pain General: Chief Complaint: Abdominal Pain Stated Complaint: Abd Pains, panic attack Time Seen by Provider: 04/14/22 10:02 History of Present Illness: Patient is a 51-year-old male who comes to the ED with abdominal pain and nausea. Abdominal pain started this morning. Its located in the epigastric region of abdomen and he rates it currently a 10 out of 10. He has a history of acid reflux and says this pain is similar to past episodes. Endorses having nausea and vomiting as well. Since the start of his symptoms this morning he just started having a panic attack as well. Denies any chest pain. Endorses shortness of breath with his panic attack. He has not taken anything for pain before coming to the ED. patient has a history of of acid reflux and is not taking his current Protonix medication. Patient also is a daily tobacco smoker and drinks a lot of caffeine daily as well. Associated Symptoms: Reports nausea and vomiting; Denies chills, constipation, diarrhea, dysuria, fever(s), hematochezia and hematuria Review of Systems Const: Denies: fever(s), chills or fatigue Eyes: Denies: change in vision or eye discomfort ENMT: Denies: throat pain, odynophagia, nasal discharge or nasal congestion Card: Denies: chest pain, palpitations, edema, swelling of feet/ankles, dyspnea on exertion or orthopnea Resp: Denies: dyspnea, productive cough or non-productive cough GI: Reports: abdominal pain, nausea and vomiting; Denies: diarrhea, constipation or hematochezia : Denies: flank pain, difficulty urinating, dysuria or hematuria Musc: Denies: neck pain, back pain or extremity swelling Skin/Breast: Denies: rash or new lesions Neuro: Denies: headache(s), numbness in extremities or weakness in extremities PFS ED PFSH: Medical History Anxiety Benzodiazepine abuse in remission In early remission Bipolar I disorder, current or most recent episode depressed, with psychotic features Cannabis dependence, continuous Chronic post-traumatic stress disorder Coughing up blood Dementia 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 Depression Generalized anxiety disorder Homelessness Hypersomnia Major depressive disorder, recurrent episode with mood-congruent psychotic features Nicotine dependence, cigarettes, uncomplicated Orthostatic hypotension Panic disorder without agoraphobia Psychiatric care Schizotypal disorder Syncope TBI (traumatic brain injury) Family History Other CAD (coronary artery disease) Cancer Diabetes Hypertension Denies family history of Stroke Social History Smoking and tobacco status: current every day smoker cigarettes Packs smoked per day: 0.5 Years cigarettes smoked: 36 Quit status (tobacco): considering quitting Second hand smoke exposure: Yes Alcohol intake: never History of recent travel: Yes (travels from [facility]) Current gender identity: Male Physical Exam Const: COMMON NORMALS: patient oriented x3 HENMT: COMMON NORMALS: normocephalic HEAD & SCALP: normocephalic MOUTH: Normal oral and palatal mucosa present THROAT: posterior oropharynx normal and uvula midline Neck/C-Spine: COMMON NORMALS: supple GENERAL: Yes normal visual inspection Resp: COMMON NORMALS: normal respiratory effort, No retractions, No use of accessory muscles and clear to auscultation bilaterally AUSCULTATION: clear to auscultation bilaterally Cardio: COMMON NORMALS: regular rate, regular rhythm, S1 normal heart sound present, S2 normal heart sound present, No gallops present (Cardio), No clicks present (Cardio), No murmurs present (Cardio) and Peripheral pulses 2+ throughout RATE: regular rate RHYTHM: regular rhythm HEART SOUNDS: S1 normal heart sound present and S2 normal heart sound present PERIPHERAL PULSES: Peripheral pulses 2+ throughout GI: COMMON NORMALS: Normal to inspection, nondistended, normoactive bowel sounds present, Soft to palpation and no masses PALPATION: Yes Soft to palpation and Yes Tenderness to palpation present (GI) Details: other (Epigastric) : COMMON NORMALS: Yes no CVA tenderness BLADDER/KIDNEY EXAM: Yes no CVA tenderness Back/Pelvis: COMMON NORMALS: no CVA tenderness Extremity: COMMON NORMALS: normal to inspection Neuro: COMMON NORMALS: patient oriented x3 GAIT: Yes Normal gait present Skin: GENERAL SKIN EXAM: dry skin Course Vital Signs: Vital signs: Vital Signs Temperature 97.9 F 04/14/22 09:52 Pulse Rate 55 L 04/14/22 13:29 Respiratory Rate 18 04/14/22 15:21 Blood Pressure 174/87 04/14/22 13:29 Pulse Oximetry 95 04/14/22 13:29 Oxygen Delivery Me thod 04/14/22 13:29 MDM - Abdominal Pain Medical Decision Making Patient is a 51-year-old male who comes to the ED with abdominal pain and nausea. Abdominal pain started this morning. Its located in the epigastric region of abdomen and he rates it currently a 10 out of 10. Patient has a history of acid reflux and is supposed to be on Protonix but has stopped taking it. Patient is also a daily tobacco smoker and drinks a lot of caffeine daily. Vital stable. Patient has some epigastric tenderness of the abdomen but rest of exam is benign. CBC, CMP and lipase were unremarkable. Troponins negative and EKG showed no acute findings. UA showed no signs of UTI. CT of abdomen pelvis showed no acute findings but noted some bilateral patchy heterogeneity in the kidneys which sometimes can be associated with mild pyelonephritis but no obstruction or abscess noted. Given patient's history and exam findings are not concerned about any pyelonephritis. Patient's symptoms improved after pain meds, GI cocktail and Pepcid. Patient was diagnosed with gastritis and was discharged home with a prescription for Protonix and Reglan. He was told to follow-up with his PCP in the next week for reevaluation. Return ED precautions given. Patient is to agree with plan. Lab Data I reviewed the patient's lab results. : 04/14/22 10:18 04/14/22 10:18 Labs/Radiology: Radiology Impressions Abdomen/Pelvis CT 04/14/22 11:16 IMPRESSION: 1. Mild patchy heterogeneity throughout each kidney. This can be seen with mild pyelonephritis. No obstruction or abscess. Correlate with urinalysis. 2. Negative gallbladder. 3. No appendicitis. 4. Very mild fluid-filled ascending colon. No obstructive pattern. Laboratory Results WBC 11.8 10^3/uL (4.0-10.0) H 04/14/22 10:18 RBC 5.43 10^6/uL (4.1-5.3) H 04/14/22 10:18 Hgb 16.6 g/dL (11.7-16.6) 04/14/22 10:18 Hct 47.7 % (42.0-52.0) 04/14/22 10:18 MCV 87.8 fl (80-94) 04/14/22 10:18 MCH 30.6 pg (28.0-34.0) 04/14/22 10:18 MCHC 34.8 g/dL (30.0-36.0) 04/14/22 10:18 RDW 13.0 % (12.1-15.1) 04/14/22 10:18 Plt Count 339 10^3/cmm (130-400) 04/14/22 10:18 MPV 10.1 fL (7.4-10.4) 04/14/22 10:18 Neut % (Auto) 81.1 % 04/14/22 10:18 Lymph % (Auto) 15.2 % 04/14/22 10:18 [place] % (Auto) 3.1 % 04/14/22 10:18 Eos % (Auto) 0.1 % 04/14/22 10:18 Baso % (Auto) 0.2 % 04/14/22 10:18 Neut # (Auto) 9.56 10^3/uL (1.8-7.7) H 04/14/22 10:18 Lymph # (Auto) 1.8 10^3/uL (0.8-4.8) 04/14/22 10:18 [place] # (Auto) 0.4 10^3/uL (0.2-0.9) 04/14/22 10:18 Eos # (Auto) 0.0 10^3/uL (0.0-0.8) 04/14/22 10:18 Baso # (Auto) 0.0 10^3/uL (0.0-0.1) 04/14/22 10:18 Nucleated RBC % (auto) 0 % 04/14/22 10:18 Nucleated RBCs # 0.0 /100WBC 04/14/22 10:18 Sodium 140 mmol/L (136-145) 04/14/22 10:18 Potassium 4.1 mmol/L (3.5-5.1) 04/14/22 10:18 Chloride 103 mmol/L (98-107) 04/14/22 10:18 Carbon Dioxide 21 mmol/L (22-29) L 04/14/22 10:18 Anion Gap 20.1 (5-19) H 04/14/22 10:18 BUN 14 mg/dL (6-20) 04/14/22 10:18 Creatinine 0.8 mg/dL (0.7-1.2) 04/14/22 10:18 GFR Calculation 101.9 mL/min (90-130) 04/14/22 10:18 Glucose 113 mg/dL (65-115) 04/14/22 10:18 Calculated Osmolality 291 mOsm/kg (285-295) 04/14/22 10:18 Calcium 9.9 mg/dL (8.5-10.5) 04/14/22 10:18 Total Bilirubin 0.4 mg/dL (0.15-1.2) 04/14/22 10:18 AST 14 U/L (0-40) 04/14/22 10:18 ALT 24 U/L (0-41) 04/14/22 10:18 Alkaline Phosphatase 84 IU/L (40-130) 04/14/22 10:18 Troponin T Baseline 8 ng/L (0-15) 04/14/22 10:18 Troponin T 120 Minute 6.01 ng/L (0-15) 04/14/22 12:29 Delta Troponin T -1.99 ABS# (0-10) L 04/14/22 12:29 Total Protein 7.0 g/dL (6.6-8.7) 04/14/22 10:18 Albumin 4.7 g/dL (3.5-5.2) 04/14/22 10:18 Globulin 2.3 g/dL (1.3-4.6) 04/14/22 10:18 Lipase 15 U/L (13-60) 04/14/22 10:18 Urine Color Yellow (Yellow) 04/14/22 10:28 Urine Appearance Clear (CLEAR) 04/14/22 10:28 Urine pH 8 (5-7) H 04/14/22 10:28 Ur Specific Ider 1.010 (1.005-1.030) 04/14/22 10:28 Urine Protein Neg (Negative) 04/14/22 10:28 Urine Glucose (UA) Norm (Normal) 04/14/22 10:28 Urine Ketones 2+ (Negative) H 04/14/22 10:28 Urine Blood Neg (Negative) 04/14/22 10:28 Urine Nitrate Negative (Negative) 04/14/22 10:28 Urine Bilirubin Neg (Negative) 04/14/22 10:28 Prot Sulfosalicylic Acd Negative (Negative) 04/14/22 10:28 Urine Urobilinogen Norm mg/dL (Negative) 04/14/22 10:28 Ur Leukocyte Esterase Negative (Negative) 04/14/22 10:28 EKG Data EKG 1: EKG interpretation date: 04/14/22 Interpretation: Sinus bradycardia, 55 bpm, no ST segment elevation or depression seen. No other acute findings noted. Discharge Plan Discharge Patient Disposition: Home Clinical Impression: Gastritis Qualifiers: Gastritis type: unspecified gastritis Chronicity: acute Gastritis bleeding: without bleeding Qualified Code(s): K29.00 - Acute gastritis without bleeding Condition: Stable Prescriptions: New Reglan 10 mg tablet 10 mg PO Q6H PRN (Reason: nausea and vomiting) Qty: 20 0RF Protonix 40 mg tablet,delayed release (DR/EC) 40 mg PO DAILY 28 Days Qty: 30 0RF No Action amoxicillin-pot clavulanate 875-125 mg tablet 1 tab PO BID 7 Days Qty: 14 0RF bupropion HCl 300 mg tablet extended release 24 hr 300 mg PO QAM Qty: 30 1RF Rx Instructions: Take one tablet by mouth every morning; stop 150 mg dose gabapentin 400 mg capsule 400 mg PO TID@0600,1200,1800 Qty: 90 1RF Rx Instructions: Take one capsule three times a day at 6 AM, noon, and 6 PM mirtazapine 30 mg tablet 30 mg PO .at bedtime Qty: 30 1RF Rx Instructions: Take one tablet daily at bedtime hydroxyzine HCl 50 mg tablet 50 mg PO BID PRN (Reason: anxiety) Qty: 60 1RF Rx Instructions: Take one tablet once or twice daily, if needed, for anxiety Discharge Orders: Discharge ED (Routine); Ordered 04/14/22 Ordered By: Luciano Quinones Referrals: Kevin Tovar MD [Primary Care Provider] - Discharge Diet: Advance as tolerated Discharge Activity: Increase activity as tolerated Activity Restrictions/Additional Instructions: Follow-up with medical provider as directed in the next 7 to 10 days for reevaluation. take medications as prescribed. Return to the ER or your medical provider if condition worsens. Please read and understand discharge instructions. Thank you for choosing [facility] for your healthcare needs today. Please realize this is an emergency room and that we are providing you with a medical screening exam and this may not be complete and all inclusive of all the testing and or work up that you may need to determine your ailment or severity of your illness. It is very important that you follow up as instructed or that you return to the Emergency Department should you have concerns or if your condition changes or worsens in any way. Coding Level of Care Code ED Well Treatment Offsider for Willian Fwd Exam Comprehensive
[2022-04-14 10:31] LABS: Basophils % 0.2 %; Eosinophils % 0.1 %; Hematocrit 47.7 % (42.0-52.0); Hemoglobin 16.6 g/dL (11.7-16.6); Lymphocytes # 1.8 10^3/uL (0.8-4.8); Lymphocytes % 15.2 %; Mean Corpuscular HGB Conc 34.8 g/dL (30.0-36.0); Mean Corpuscular Hemoglobin 30.6 pg (28.0-34.0); Mean Corpuscular Volume 87.8 fl (80-94); Mean Platelet Volume 10.1 fL (7.4-10.4); Monocytes # 0.4 10^3/uL (0.2-0.9); Monocytes % 3.1 %; Neutrophils # 9.56 10^3/uL (1.8-7.7); Neutrophils % 81.1 %; Nucleated Red Blood Cells % 0 %; Platelet Count 339 10^3/cmm (130-400); Red Blood Count 5.43 10^6/uL (4.1-5.3); White Blood Count 11.8 10^3/uL (4.0-10.0)
[2022-04-14 10:37] VITALS: RESP 14; O2SAT 98
[2022-04-14] MEDS: morphine 4 mg/mL SDV 1 mL IVP ×3 (10:37→15:21)
[2022-04-14] MEDS: ondansetron 2 mg/ML SDV 2 mL 4 MG IVP (10:38)
[2022-04-14] MEDS: sodium chloride 0.9% 1,000 ML 999 ML IV (10:43)
[2022-04-14 10:49] LABS: Add Urine Microscopic? NO; Charge for UA Resulting for Rev
[2022-04-14 11:02] LABS: Alanine Aminotransferase 24 U/L (0-41); Albumin Level 4.7 g/dL (3.5-5.2); Alkaline Phosphatase 84 IU/L (40-130); Anion Gap 20.1 (5-19); Aspartate Amino Transferase 14 U/L (0-40); Blood Urea Nitrogen 14 mg/dL (6-20); Calcium 9.9 mg/dL (8.5-10.5); Carbon Dioxide 21 mmol/L (22-29); Chloride 103 mmol/L (98-107); Globulin 2.3 g/dL (1.3-4.6); Glomerular Filtration Rate 101.9 mL/min (90-130); Glucose 113 mg/dL (65-115); Lipase 15 U/L (13-60); Osmolality Calculated 291 mOsm/kg (285-295); Potassium 4.1 mmol/L (3.5-5.1); Sodium 140 mmol/L (136-145); Total Bilirubin 0.4 mg/dL (0.15-1.2)
[2022-04-14 11:09] LABS: Troponin(5th) Baseline 8 ng/L (0-15)
[2022-04-14 11:12] LABS: Bilirubin Urine Neg (Negative); Blood Urine Neg (Negative); Glucose Urine UA Norm (Normal); Ketones Urine 2+ (Negative); Leukocyte Esterase Urine Negative (Negative); Nitrate Urine Negative (Negative); Protein Urine Neg (Negative); Urine Appearance Clear (CLEAR); Urine Color Yellow (Yellow); Urobilinogen Urine Norm (Negative); pH Urine 8 (5-7)
[2022-04-14 11:13] LABS: Sulfosalicylic Acid Urine Negative (Negative)
--- NOTE | 2022-04-14 11:16 | CT_ITS ---
WS: [id number] CT ABDOMEN AND PELVIS WITH CONTRAST HISTORY: epigastric abdominal pain w/ n/v TECHNIQUE: Imaging performed of the abdomen and pelvis with IV contrast. Single phase imaging of the abdomen. Coronal and sagittal reformats are submitted. All CT scans at [facility] use at [address] one of these dose optimization techniques: automated exposure control; mA and/or kV adjustment per patient size (includes targeted exams where dose is matched to clinical indication); or iterative re construction. IV CONTRAST: Omnipaque 350; 80 mL IV. Oral contrast: No DLP: 491.84 mGy.cm COMPARISON: 11/23/2020 Lower thorax: Lung bases are clear. Heart is normal size. Small hiatal hernia. Liver/biliary system: Normal size liver. Numerous very tiny, 2 mm hypodensities scattered throughout the liver are similar to the prior study. These are too small to characterize. Normal portal vein. Gallbladder: Normal. No gallstones or wall thickening. No pericholecystic fluid. Pancreas: Normal size pancreas and pancreatic duct. No adjacent inflammation. Spleen: Normal size spleen. No mass or infarct. Adrenal glands: Normal. Right kidney: Mild heterogeneous enhancement throughout the RIGHT renal parenchyma. Scattered areas o f decreased attenuation were not present on the prior study. There is no obstruction. Left kidney: Mild heterogeneous enhancement with areas of decreased attenuation and enhancement. No o bstruction or mass. Aorta: Mild atherosclerosis with no aneurysm. Lymphadenopathy: There are a few very small shoddy retroperitoneal lymph nodes. No adenopathy. Free fluid: None. GI tract: Nondistended stomach. No small bowel obstruction. Appendix is normal. There is an increased fluid within the ascending colon but no obstructive pattern. Abdominal wall: Fat containing umbilical hernia. Pelvis: Inguinal canals are patent bilaterally containing fat only. Urinary bladder is negative. Bones: Unremarkable. CT/CT abdomen pelvis w con* [id number] IMPRESSION: 1. Mild patchy heterogeneity throughout each kidney. This can be seen with mil d pyelonephritis. No obstruction or abscess. Correlate with urinalysis. 2. Negative gallbladder. 3. No appendicitis. 4. Very mild fluid-filled ascending colon. No obstructive pattern.
[2022-04-14] MEDS: iohexol 350 mg/mL 100 mL Btl IV (11:57)
[2022-04-14 12:51] VITALS: RESP 14
[2022-04-14 13:29] VITALS: BP 174/87; PULSE 55; RESP 20; O2SAT 95
[2022-04-14] MEDS: metoclopramide 5 mg/mL SDV 2 mL 10 MG IVP (13:38)
[2022-04-14] MEDS: famotidine 20 mg/2 mL INJ 40 MG IVP (13:39)
[2022-04-14] MEDS: lidocaine 2% viscous 15 ML, aluminum-mag hydrox-simethicon 30 ML, sucralfate oral liq 1 GM PO (13:45)
[2022-04-14 15:21] VITALS: RESP 18
[2022-04-14] MEDS: LORazepam 1 mg Tablet PO (15:22)
[2022-04-14 15:26] LABS: Troponin 5 2HR 6.01 ng/L (0-15)
--- NOTE | 2022-04-14 16:26 | ECG_ITS ---
[facility] Test Date: 2022-04-14 Pat Name: Soy Zuñiga Department: Room: Gender: Male Can Capper: : 1970 Requested By: Luciano Quinones Order Number: [id number] Yun MD: Vivi Mancuso M.D. Measurements Intervals [place] Rate: 55 P: -5 PA: 123 QRS: 84 QRSD: 94 T: 45 QT: 407 QTc: 391 Interpretive Statements SINUS BRADYCARDIA No previous ECG available for comparison Electronically Signed On 04-15-2022 19:01:26 CDT by Vivi Mancuso M.D. [id number]
[2022-04-14 16:51] LABS: Troponin 5 2HR Delta -1.99 ABS# (0-10)
== END 2022-04-14 15:48 | disposition home or self-care (01) ==
PROVIDERS: Emergency Provider Physician Assistant; PCP Family Medicine
DX: K29.00 Acute gastritis without bleeding (principal); F17.210 Nicotine dependence, cigarettes, uncomplicated; F03.90 Unspecified dementia, unspecified severity, without behavioral disturbance, psychotic disturbance, mood disturbance, and anxiety; Z87.820 Personal history of traumatic brain injury
CPT/HCPCS: 74177; 80053; 81003; 83690; 84484; 85025; 93005; 96361; 96374; 96375; 96376; 99285; J2270; J2405; J2765; J3490; J7030; Q9967

== ENCOUNTER 2022-12-19 11:26 | Emergency (ER) | payer OTHER, MEDICAID, SELFPAY ==
[2022-12-19 11:51] VITALS: BP 129/90; PULSE 56; TEMP 36.2; O2SAT 96; BMI 22.9
--- NOTE | 2022-12-19 11:56 | ED_ITS ---
HPI - Dental/Oral General: Chief complaint: Dental/Oral Stated complaint: Dental Pain Time Seen by Provider: 12/19/22 11:54 History of Present Illness: Patient presents to the ER with complaints of dental pain. Patient has multiple dental caries on his lower front teeth. Patient's had these multiple times he already knows he needs to go and to see the dentist and have them pulled for definitive treatment, he is asking for antibiotics. Patient already states he is got try to get a hold of his dentist tomorrow and arrange definitive treatment. MD Complaint: tooth pain Location: Tooth # (Multiple anterior lower teeth) Duration: constant Severity: moderate Relieving factors: nothing Exacerbating factors: nothing Associated symptoms: Reports no associated symptoms; Denies fever(s) or odynophagia Treatment prior to arrival: none Review of Systems General: Reports: 10 or more systems reviewed and unremarkable except in HPI and below Const: Denies: fever(s) or chills Eyes: Denies: change in vision or photophobia ENMT: Denies: throat pain or odynophagia Card: Denies: chest pain, palpitations or irregular heart rhythm Resp: Denies: dyspnea, productive cough or non-productive cough PFSH ED PFSH: Medical History Anxiety Benzodiazepine abuse in remission In early remission Bipolar I disorder, current or most recent episode depressed, with psychotic features Cannabis dependence, continuous Chronic post-traumatic stress disorder Coughing up blood Dementia 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 Depression Generalized anxiety disorder Homelessness Hypersomnia Major depressive disorder, recurrent episode with mood-congruent psychotic features Nicotine dependence, cigarettes, uncomplicated Orthostatic hypotension Panic disorder without agoraphobia Psychiatric care Schizotypal disorder Syncope TBI (traumatic brain injury) Family History Other CAD (coronary artery disease) Cancer Diabetes Hypertension Denies family history of Stroke Social History Smoking and tobacco status: current every day smoker cigarettes Packs smoked per day: 0.5 Years cigarettes smoked: 36 Quit status (tobacco): considering quitting Second hand smoke exposure: Yes Alcohol intake: never Current gender identity: Male Physical Exam Const: COMMON NORMALS: no acute distress, average body habitus, patient oriented x3, no limitations, healthy appearing, alert and well nourished HENMT: COMMON NORMALS: normocephalic, atraumatic, hearing grossly normal bilaterally, Normal external nose present and moist oral mucous membranes HEAD & SCALP: normocephalic and atraumatic NOSE: Normal external nose present OTHER: Patient had global poor dentition with multiple dental caries on multiple lower anterior teeth. Neck/C-Spine: COMMON NORMALS: full ROM, no lymphadenopathy, supple, no me ningeal signs and no JVD Chest: COMMONS NORMALS: normal inspection of the chest and normal palpation of entire chest wall Resp: COMMON NORMALS: normal respiratory effort, No retractions, No use of accessory muscles and clear to auscultation bilaterally AUSCULTATION: clear to auscultation bilaterally Cardio: COMMON NORMALS: no JVD, regular rate, regular rhythm, S1 normal heart sound present, S2 normal heart sound present, No gallops present (Cardio), No clicks present (Cardio) and No murmurs present (Cardio) RATE: regular rate RHYTHM: regular rhythm HEART SOUNDS: S1 normal heart sound present and S2 normal heart sound present Neuro: COMMON NORMALS: patient oriented x3 SENSORIUM/ORIENTATION: Yes alert MENINGEAL SIGNS: Yes no meningeal signs MDM - Dental/Oral Medical Decision Making Patient presents to the ER with multiple dental caries on multiple teeth on his lower front teeth. Patient has had these for an extended period of time and knows the drill about taking antibiotics and getting in with a dentist. Patient is only requesting antibiotics and says he will talk to his dentist in the morning for further definitive treatment. Patient will be discharged on antibiotics Differential Diagnosis Likely dental caries and toothache Discharge Plan Discharge Patient Disposition: Home Clinical Impression: Dental caries, Pain, dental Condition: Stable Prescriptions: New amoxicillin-pot clavulanate 875-125 mg tablet 1 tab PO Q12H Qty: 14 0RF No Action amoxicillin-pot clavulanate 875-125 mg tablet 1 tab PO BID 7 Days Qty: 14 0RF hydroxyzine HCl 50 mg tablet 50 mg PO BID PRN (Reason: anxiety) Qty: 60 1RF Rx Instructions: Take one tablet once or twice daily, if needed, for anxiety bupropion HCl 300 mg tablet extended release 24 hr 300 mg PO QAM Qty: 30 0RF gabapentin 400 mg capsule 400 mg PO TID@0600,1200,1800 Qty: 90 0RF Rx Instructions: Take one capsule three times a day at 6 AM, noon, and 6 PM mirtazapine 30 mg tablet 30 mg PO .at bedtime Qty: 30 0RF Rx Instructions: Take one tablet daily at bedtime Reglan 10 mg tablet 10 mg PO Q6H PRN (Reason: nausea and vomiting) Qty: 20 0RF Discharge Orders: Discharge ED (Routine); Ordered 12/19/22 Ordered By: Tray Marvin Referrals: Kevin Tovar MD [Primary Care Provider] - 1 week Patient Instructions: Dental Caries (Cavities), Toothache (ED) Activity Restrictions/Additional Instructions: Please take all antibiotics as directed. Please call your dentist tomorrow morning to arrange follow-up and further definitive treatment. Coding Level of Care Code ED Maintenance Parts Technician for Willian Gramajo
== END 2022-12-19 12:23 | disposition home or self-care (01) ==
PROVIDERS: Emergency Provider Emergency Medicine; PCP Family Medicine
DX: K02.9 Dental caries, unspecified (principal); F17.210 Nicotine dependence, cigarettes, uncomplicated; F03.90 Unspecified dementia, unspecified severity, without behavioral disturbance, psychotic disturbance, mood disturbance, and anxiety; Z87.820 Personal history of traumatic brain injury
CPT/HCPCS: 99283

== ENCOUNTER → 2023-06-08 15:22 | Outpatient (BNVA) | payer MEDICARE, SELFPAY | PROVIDERS: PCP Family Medicine; Visit Provider Registered Nurse | DX: Z79.899 Other long term (current) drug therapy (principal) | CPT/HCPCS: 80053; 80061; 82306; 82607; 83036; 84443; 85025 ==

== ENCOUNTER 2023-06-16 09:06 | Emergency (ER) | payer MEDICARE, SELFPAY ==
[2023-06-16 09:13] VITALS: BP 156/93; PULSE 61; RESP 16; TEMP 36.8; O2SAT 97
--- NOTE | 2023-06-16 09:14 | ECG_ITS ---
[facility] Test Date: 2023-06-16 Pat Name: Soy Zuñiga Department: Room: Gender: Male Melangeur Operator: : 1970 Requested By: Edd Pacheco Order Number: [id number] Court MD: Matthieu Jauregui M.D. Measurements Intervals [place] Rate: 58 P: 73 WI: 158 QRS: 70 QRSD: 96 T: 44 QT: 373 QTc: 368 Interpretive Statements SINUS BRADYCARDIA POSSIBLE LEFT ATRIAL ENLARGEMENT [-0.1mV P-WAVE IN V1/V2] Possible old septal Myocardial infarction Compared to ECG 04/14/2022 12:48:40 No significant changes Electronically Signed On 06-16-2023 21:32:19 CDT by Matthieu Jauregui M.D. [id number] f
[2023-06-16 09:19] VITALS: BP 148/68; PULSE 65; RESP 18; O2SAT 98
--- NOTE | 2023-06-16 09:43 | XRR_ITS ---
PROCEDURE INFORMATION: Exam: XR Chest Exam date and time: 06/16/2023 9:51 AM Age: 53 years old Clinical indication: Cough and dyspnea; Patient HX: --n/v, tingling in fingers; Additional info: Dyspnea/cough TECHNIQUE: Imaging protocol: Radiologic exam of the chest. Views: 1 view. COMPARISON: CR XR ribs RT mn 3V w CXR1V [id number] 09/15/2020 11:45 AM FINDINGS: Lungs: Unremarkable. No consolidation. Pleural spaces: Unremarkable. No pleural effusion. No pneumothorax. Heart/Mediastinum: Unremarkable. No cardiomegaly. Bones/joints: Mild scoliosis. XR/XR chest 1V portable [id number] IMPRESSION: No acute disease.
[2023-06-16 09:46] LABS: Basophils % 0.5 %; Eosinophils # 0.1 10^3/uL (0.0-0.8); Eosinophils % 0.6 %; Hematocrit 49.3 % (37-53); Lymphocytes # 2.4 10^3/uL (0.8-4.8); Lymphocytes % 27.8 %; Mean Corpuscular HGB Conc 35.5 g/dL (30-55); Mean Corpuscular Volume 87.4 fl (82-101); Mean Platelet Volume 10.2 fL (7.4-10.4); Monocytes # 0.5 10^3/uL (0.2-0.9); Neutrophils # 5.63 10^3/uL (1.8-7.7); Neutrophils % 64.8 %; Nucleated Red Blood Cells % 0 %; Platelet Count 247 10^3/cmm (157-399); Red Blood Count 5.64 10^6/uL (3.85-5.65); Red Cell Distribution Width 12.3 % (12.1-15.1); White Blood Count 8.68 10^3/uL (3.29-11.43)
--- NOTE | 2023-06-16 09:47 | ED_ITS ---
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 Depression Generalized anxiety disorder Homelessness Hypersomnia Major depressive disorder, recurrent episode with mood-congruent psychotic features Nicotine dependence, cigarettes, uncomplicated Orthostatic hypotension Panic disorder without agoraphobia Psychiatric care Schizotypal disorder Syncope TBI (traumatic brain injury) Family History Other CAD (coronary artery disease) Cancer Diabetes Hypertension Denies family history of Stroke Social History Smoking and tobacco/nicotine status: current every day tobacco/nicotine user cigarettes Packs smoked per day: 0.5 Years cigarettes smoked: 36 Quit status (tobacco/nicotine): considering quitting Second hand smoke exposure: Yes Alcohol intake: never Substance/Drug Use: never Current gender identity: Male Course Vital Signs: Vital signs: Vital Signs Temperature 98.3 F 06/16/23 09:13 Pulse Rate 65 06/16/23 09:19 Respiratory Rate 18 06/16/23 09:19 Blood Pressure 148/68 06/16/23 09:19 Pulse Oximetry 98 06/16/23 09:19 Oxygen Delivery Me thod Room Air 06/16/23 09:19 MDM - Anxiety Lab Data 06/16/23 09:22 06/16/23 09:22 Laboratory Results WBC 8.68 10^3/uL (3.29-11.43) 06/16/23 09:22 RBC 5.64 10^6/uL (3.85-5.65) 06/16/23 09:22 Hgb 17.50 g/dL (11.27-16.99) H 06/16/23 09:22 Hct 49.3 % (37-53) 06/16/23 09:22 MCV 87.4 fl (82-101) 06/16/23 09:22 MCH 31.0 pg (27-33) 06/16/23 09:22 MCHC 35.5 g/dL (30-55) 06/16/23 09: RDW 12.3 % (12.1-15.1) 06/16/23 09: Plt Count 247 10^3/cmm (157-399) 06/16/23 09:22 MPV 10.2 fL (7.4-10.4) 06/16/23 09: Neut % (Auto) 64.8 % 06/16/23 09: Lymph % (Auto) 27.8 % 06/16/23 09:22 [place] % (Auto) 6.0 % 06/16/23 09: Eos % (Auto) 0.6 % 06/16/23 09: Baso % (Auto) 0.5 % 06/16/23 09: Neut # (Auto) 5.63 10^3/uL (1.8-7.7) 06/16/23 09: Lymph # (Auto) 2.4 10^3/uL (0.8-4.8) 06/16/23 09:22 [place] # (Auto) 0.5 10^3/uL (0.2-0.9) 06/16/23 09: Eos # (Auto) 0.1 10^3/uL (0.0-0.8) 06/16/23 09: Baso # (Auto) 0.0 10^3/uL (0.0-0.1) 06/16/23 09: Nucleated RBC % (auto) 0 % 06/16/23 09: Nucleated RBCs # 0.0 /100WBC 06/16/23 09:22 Discharge Plan Discharge Condition: Stable Prescriptions: No Action aripiprazole [Abilify] 10 mg tablet 10 mg PO DAILY Qty: 30 0RF Referrals: Kevin Tovar MD [Primary Care Provider] - Coding Level of Care Code ED Metal Roofer for Chg Rox
[2023-06-16 09:48] LABS: Add Urine Microscopic? NO; Charge for UA Resulting for Rev
--- NOTE | 2023-06-16 09:50 | W.ED.ABDPA2 ---
HPI - Abdominal Pain General: Chief Complaint: Anxiety Stated Complaint: abd pain, N/V tingling in fingers Time Seen by Provider: 06/16/23 09:14 Source: patient Mode of arrival: ambulatory History of Present Illness: 53-year-old male presents emergency room planing abdominal pain. This been ongoing for several years he has had poor intermittent problems of constipation lately he has been drinking milk of magnesia every day for the last several months prior to that he had been on lactulose but it got recalled and he did not restart it he is also having some chest discomfort. States he feels like he is having a panic attack with rapid breathing which triggered the chest discomfort which she terms as a tightness. He has not had any fever sweats chills nausea vomiting. He has chronic diarrhea because the most magnesia takes he takes it continuously because he states without it he cannot have a bowel movement he denies dysuria urgency or frequency no medication on him times cough cramps no hematuria. MD elicited complaint: abdominal pain Onset (ago): year(s) Location: Diffuse Severity: mild Quality: cramping Exacerbating factors: nothing Relieving factors: nothing Associated Symptoms: Reports constipation (Patient relates he is chronically constipated and less uses MOM), GI cramping, diarrhea (Precipitated by chronic use of MOM to prevent constipation), loose stools, nausea and poor appetite; Denies chills, dysuria, fever(s), hematochezia, hematuria, hematemesis, fecal incontinence, melena and vomiting Review of Systems Const: Denies: fever(s) or chills Card: Denies: chest pain Resp: Denies: dyspnea GI: Reports: abdominal pain, nausea, diarrhea (Precipitated by chronic use of MOM to prevent constipation), constipation (Patient relates he is chronically constipated and less uses MOM) and GI cramping; Denies: vomiting, hematemesis, fecal incontinence, hematochezia or melena : Denies: flank pain, dysuria, urinary frequency, urinary urgency or hematuria Musc: Denies: neck pain or back pain Skin/Breast: Denies: rash PFSH ED PFSH: Medical History (Updated 06/16/23 @ 12:12 by Edd Ruelas DO) Anxiety Benzodiazepine abuse in remission In early remission Bipolar I disorder, current or most recent episode depressed, with psychotic features Cannabis dependence, continuous Chronic post-traumatic stress disorder Coughing up blood Dementia 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 Depression Generalized anxiety disorder Homelessness Hypersomnia Major depressive disorder, recurrent episode with mood-congruent psychotic features Nicotine dependence, cigarettes, uncomplicated Orthostatic hypotension Panic disorder without agoraphobia Psychiatric care Schizotypal disorder Syncope TBI (traumatic brain injury) Family History Other CAD (coronary artery disease) Cancer Diabetes Hypertension Denies family history of Stroke Social History Smoking and tobacco/nicotine status: current every day tobacco/nicotine user cigarettes Packs smoked per day: 0.5 Years cigarettes smoked: 36 Quit status (tobacco/nicotine): considering quitting Second hand smoke exposure: Yes Alcohol intake: never Substance/Drug Use: never Current gender identity: Male Physical Exam Const: COMMON NORMALS: no acute distress GENERAL APPEARANCE: cooperative and comfortable ORIENTATION/CONSCIOUSNESS: Yes awake, Yes oriented to person, Yes oriented to place and Yes oriented to time HENMT: COMMON NORMALS: normocephalic, atraumatic and hearing grossly normal bilaterally HEAD & SCALP: normocephalic and atraumatic Resp: COMMON NORMALS: normal respiratory effort, No retractions, No use of accessory muscles and clear to auscultation bilaterally AUSCULTATION: clear to auscultation bilaterally Cardio: COMMON NORMALS: regular rate, regular rhythm and No murmurs present (Cardio) RATE: regular rate RHYTHM: regular rhythm GI: COMMON NORMALS: Soft to palpation and No hepatosplenomegaly present AUSCULTATION: Yes normoactive bowel sounds PALPATION: Yes Soft to palpation, No Tenderness to palpation present (GI), No Guarding due to palpation present (GI) and Yes No hepatosplenomegaly present Extremity: COMMON NORMALS: normal to inspection, capillary refill normal, no clubbing, cyanosis or edema, no calf tenderness and no pedal edema Neuro: SENSORIUM/ORIENTATION: Yes oriented to person, Yes oriented to place and Yes oriented to time Skin: COMMON NORMALS: no rashes or lesions noted GENERAL SKIN EXAM: no rashes or lesions noted Course Vital Signs: Vital signs: Vital Signs Temperature 98 F 06/16/23 12:29 Pulse Rate 65 06/16/23 12:29 Respiratory Rate 18 06/16/23 12:29 Blood Pressure 148/68 10/12/23 12:29 Pulse Oximetry 98 06/16/23 12:29 Oxygen Delivery Me thod Room Air 06/16/23 09:19 MDM - Abdominal Pain Medical Decision Making Labs , imaging and EKGs reviewed no acute changes on EKG troponins trending normal. Patient seems to have more anxiety than anything the abdominal pain has been chronic discharged home on pantoprazole. Recommend that he avoid using daily milk of magnesia and instead use polyethylene glycol regularly follow-up with his primary care doctor return if has further problems. Differential Diagnosis Likely abdominal pain, acute appendicitis, calculus of kidney, constipation, diverticulitis, gastroenteritis, pancreatitis and small bowel obstruction Medical Records I reviewed the patient's medical records. Lab Data I reviewed the patient's lab results. 06/16/23 09:22 06/16/23 09:22 Labs/Radiology: Radiology Impressions Chest X-Ray 06/16/23 09:43 IMPRESSION: No acute disease. Laboratory Results WBC 8.68 10^3/uL (3.29-11.43) 06/16/23 09:22 RBC 5.64 10^6/uL (3.85-5.65) 06/16/23 09:22 Hgb 17.50 g/dL (11.27-16.99) H 06/16/23 09:22 Hct 49.3 % (37-53) 06/16/23 09:22 MCV 87.4 fl (82-101) 06/16/23 09:22 MCH 31.0 pg (27-33) 06/16/23 09: MCHC 35.5 g/dL (30-55) 06/16/23 09:22 RDW 12.3 % (12.1-15.1) 06/16/23 09:22 Plt Count 247 10^3/cmm (157-399) 06/16/23 09:22 MPV 10.2 fL (7.4-10.4) 06/16/23 09:22 Neut % (Auto) 64.8 % 06/16/23 09:22 Lymph % (Auto) 27.8 % 06/16/23 09:22 [place] % (Auto) 6.0 % 06/16/23 09:22 Eos % (Auto) 0.6 % 06/16/23 09:22 Baso % (Auto) 0.5 % 06/16/23 09: Neut # (Auto) 5.63 10^3/uL (1.8-7.7) 06/16/23 09:22 Lymph # (Auto) 2.4 10^3/uL (0.8-4.8) 06/16/23 09:22 [place] # (Auto) 0.5 10^3/uL (0.2-0.9) 06/16/23 09:22 Eos # (Auto) 0.1 10^3/uL (0.0-0.8) 06/16/23 09:22 Baso # (Auto) 0.0 10^3/uL (0.0-0.1) 06/16/23 09: Nucleated RBC % (auto) 0 % 06/16/23 09: Nucleated RBCs # 0.0 /100WBC 06/16/23 09:22 Sodium 135 mmol/L (136-145) L 06/16/23 09:22 Potassium 4.2 mmol/L (3.5-5.1) 06/16/23 09:22 Chloride 102 mmol/L (98-107) 06/16/23 09:22 Carbon Dioxide 21 mmol/L (22-29) L 06/16/23 09:22 Anion Gap 16.2 (5-19) 06/16/23 09:22 BUN 13 mg/dL (6-20) 06/16/23 09:22 Creatinine 0.9 mg/dL (0.7-1.2) 06/16/23 09:22 GFR Calculation 88.3 mL/min (90-130) L 06/16/23 09:22 Glucose 114 mg/dL (65-115) 06/16/23 09:22 Calculated Osmolality 281 mOsm/kg (285-295) L 06/16/23 09:22 Calcium 9.6 mg/dL (8.5-10.5) 06/16/23 09:22 Total Bilirubin 0.7 mg/dL (0.15-1.2) 06/16/23 09:22 AST 12 U/L (0-40) 06/16/23 09:22 ALT 11 U/L (0-41) 06/16/23 09:22 Alkaline Phosphatase 71 U/L (40-130) 06/16/23 09:22 Troponin T Baseline < 6 ng/L (0-15) 06/16/23 09:22 Troponin T 120 Minute < 6.0 ng/L (0-15) 06/16/23 11:15 Delta Troponin T 0 ABS# (0-10) 06/16/23 11:15 Total Protein 7.4 g/dL (6.6-8.7) 06/16/23 09:22 Albumin 4.9 g/dL (3.5-5.2) 06/16/23 09:22 Globulin 2.5 g/dL (1.3-4.6) 06/16/23 09:22 Lipase 19 U/L (13-60) 06/16/23 09:22 Urine Color Yellow (Yellow) 06/16/23 09:42 Urine Appearance Clear (CLEAR) 06/16/23 09:42 Urine pH 8 (5-7) H 06/16/23 09:42 Ur Specific [place] 1.010 (1.005-1.030) 06/16/23 09:42 Urine Protein Neg (Negative) 06/16/23 09:42 Urine Glucose (UA) Norm (Normal) 06/16/23 09:42 Urine Ketones 1+ (Negative) H 06/16/23 09:42 Urine Blood Neg (Negative) 06/16/23 09:42 Urine Nitrate Negative (Negative) 06/16/23 09:42 Urine Bilirubin Neg (Negative) 06/16/23 09:42 Prot Sulfosalicylic Acd Negative (Negative) 06/16/23 09:42 Urine Urobilinogen Norm mg/dL (Negative) 06/16/23 09:42 Ur Leukocyte Esterase Negative (Negative) 06/16/23 09:42 All radiology interpretation(s) finalized by discharge Discharge Plan Discharge Patient Disposition: Home Clinical Impression: Acute anxiety, Atypical chest pain, Chronic abdominal pain Condition: Stable Prescriptions: New pantoprazole 40 mg tablet,delayed release (DR/EC) 40 mg PO DAILY Qty: 30 0RF polyethylene glycol 3350 17 gram/dose powder 17 g PO DAILY Qty: 850 0RF No Action aripiprazole [Abilify] 10 mg tablet 10 mg PO DAILY Qty: 30 0RF Discharge Orders: Discharge ED (Routine); Ordered 06/16/23 Ordered By: Edd Ruelas Referrals: Kevin Tovar MD [Primary Care Provider] - Discharge Diet: As Directed Discharge Activity: Increase activity as tolerated Patient Instructions: Constipation (ED), Diet for Stomach Ulcers and Gastritis (ED), Abdominal Pain (ED), Opioid Safety, Pain Management Activity Restrictions/Additional Instructions: Avoid taking milk of magnesia daily. Instead use polyethylene glycol 17 g daily. Start pantoprazole 40 mg daily follow-up with your primary care doctor Coding Level of Care Code ED Disc Pad Plate Filler for Willian Gramajo
[2023-06-16 09:57] LABS: Alanine Aminotransferase 11 U/L (0-41); Albumin Level 4.9 g/dL (3.5-5.2); Alkaline Phosphatase 71 U/L (40-130); Anion Gap 16.2 (5-19); Aspartate Amino Transferase 12 U/L (0-40); Blood Urea Nitrogen 13 mg/dL (6-20); Calcium 9.6 mg/dL (8.5-10.5); Carbon Dioxide 21 mmol/L (22-29); Chloride 102 mmol/L (98-107); Creatinine Clr Calc Pharmacy 99.6338; Globulin 2.5 g/dL (1.3-4.6); Glomerular Filtration Rate 88.3 mL/min (90-130); Glucose 114 mg/dL (65-115); Lipase 19 U/L (13-60); Osmolality Calculated 281 mOsm/kg (285-295); Potassium 4.2 mmol/L (3.5-5.1); Sodium 135 mmol/L (136-145); Total Bilirubin 0.7 mg/dL (0.15-1.2); Total Protein 7.4 g/dL (6.6-8.7)
[2023-06-16 10:22] LABS: Bilirubin Urine Neg (Negative); Blood Urine Neg (Negative); Glucose Urine UA Norm (Normal); Ketones Urine 1+ (Negative); Leukocyte Esterase Urine Negative (Negative); Nitrate Urine Negative (Negative); Protein Urine Neg (Negative); Sulfosalicylic Acid Urine Negative (Negative); Urine Appearance Clear (CLEAR); Urine Color Yellow (Yellow); Urobilinogen Urine Norm (Negative); pH Urine 8 (5-7)
[2023-06-16 10:22] LABS: Troponin(5th) Baseline < 6 ng/L (0-15)
[2023-06-16] MEDS: LORazepam 2 mg Tablet PO (10:38)
--- NOTE | 2023-06-16 11:46 | ECG_ITS ---
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 Measurements Intervals [place] Rate: 55 P: 68 FL: 146 QRS: 70 QRSD: 106 T: 46 QT: 389 QTc: 375 Interpretive Statements SINUS BRADYCARDIA POSSIBLE LEFT ATRIAL ENLARGEMENT [-0.1mV P-WAVE IN V1/V2] Compared to ECG 06/16/2023 09:14:33 No significant changes Electronically Signed On 06-16-2023 21:38:58 CDT by Matthieu Jauregui M.D. [id number]
[2023-06-16 11:48] LABS: Troponin 5 2HR < 6.0 ng/L (0-15); Troponin 5 2HR Delta 0 ABS# (0-10)
[2023-06-16] MEDS: promethazine 25 mg/mL SDV 1 mL IM (12:08)
[2023-06-16] MEDS: lidocaine 2% viscous 15 ML, aluminum-mag hydrox-simethicon 30 ML, sucralfate oral liq 1 GM PO (12:26)
[2023-06-16 12:29] VITALS: BP 148/68; PULSE 65; RESP 18; TEMP 36.6; O2SAT 98
== END 2023-06-16 12:30 | disposition home or self-care (01) ==
PROVIDERS: Emergency Provider Family Medicine; PCP Family Medicine
DX: F41.9 Anxiety disorder, unspecified (principal); R07.89 Other chest pain; G89.29 Other chronic pain; R10.9 Unspecified abdominal pain; F17.210 Nicotine dependence, cigarettes, uncomplicated; F03.90 Unspecified dementia, unspecified severity, without behavioral disturbance, psychotic disturbance, mood disturbance, and anxiety
CPT/HCPCS: 36415; 71045; 80053; 81003; 83690; 84484; 85025; 93005; 96372; 99285; J2550

== ENCOUNTER 2023-11-26 11:35 | Emergency (ER) | payer MEDICARE, SELFPAY ==
[2023-11-26 11:47] VITALS: BP 136/88; PULSE 61; RESP 18; TEMP 36.7; O2SAT 97; BMI 22.9
--- NOTE | 2023-11-26 12:00 | PC.PHAR ---
pt states he takes care of his own medications-pt states he takes the medications entered ext doesnt show recently filled and [facility] is closed no way to verify mg or last filled date-
--- NOTE | 2023-11-26 12:19 | XRR_ITS ---
PROCEDURE INFORMATION: Exam: XR Lumbosacral Spine Exam date and time: 11/26/2023 12:32 PM Age: 53 years old Clinical indication: Patient HX: Low back pain; Right radiculopathy; RT leg numbness TECHNIQUE: Imaging protocol: Radiologic exam of the lumbosacral spine. Views: 2 or 3 views. COMPARISON: CR XR lumbar spine f/e only [id number] 11/02/2021 2:17 PM FINDINGS: Bones/joints: Multilevel marginal osteophyte formations and facet arthropathy. Multilevel mild disc space narrowing. Soft tissues: Unremarkable. Vasculature: There is calcified plaque in the abdominal aorta. XR/XR lumbar spine 2-3V* [id number] IMPRESSION: There are degenerative changes as described above. No evidence for acute fracture.
--- NOTE | 2023-11-26 12:40 | ED_ITS ---
HPI - Extremity Problem 2 General: Chief complaint: Extremity Injury, Lower Stated complaint: right leg numbness, lower back pain Time Seen by Provider: 11/26/23 11:54 History of Present Illness: Patient presents with low back pain that shooting down his right leg. Patient says his right leg often gives out and becomes weak. Patient has intermittent numbness and tingling. Patient has had multiple back injuries in the past but none recent. Patient also complains of restless leg syndrome to the point that it is affecting his sleep. Patient is on no medicine for these. Patient also says his right leg is swollen and mildly warm he is worried about a blood clot. Patient has been on gabapentin in the past for what sounds like neuropathy or radiculopathy but has not been on it for a while. 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 Orthostatic hypotension Syncope Coughing up blood TBI (traumatic brain injury) Benzodiazepine abuse in remission In early remission Nicotine dependence, cigarettes, uncomplicated Cannabis dependence, continuous Generalized anxiety disorder Major depressive disorder, recurrent episode with mood-congruent psychotic features Anxiety Dementia Depression Family History Other CAD (coronary artery disease) Cancer Diabetes Hypertension Denies family history of Stroke Social History Smoking and tobacco/nicotine status: current every day tobacco/nicotine user cigarettes Packs smoked per day: 0.5 Years cigarettes smoked: 36 Quit status (tobacco/nicotine): considering quitting Second hand smoke exposure: Yes Alcohol intake: never Substance/Drug Use: never Current gender identity: Male Physical Exam 2 Const: COMMON NORMALS: no acute distress, average body habitus, patient oriented x3, no limitations, healthy appearing, alert and well nourished HENMT: COMMON NORMALS: normocephalic, atraumatic, hearing grossly normal bilaterally, external ears normal, Normal external nose present, moist oral mucous membranes and oropharynx normal HEAD & SCALP: normocephalic and atraumatic NOSE: Normal external nose present EXTERNAL EAR: Yes external ears normal Neck/C-Spine: COMMON NORMALS: no JVD Chest: COMMONS NORMALS: normal inspection of the chest and normal palpation of entire chest wall Resp: COMMON NORMALS: normal respiratory effort, No retractions, No use of accessory muscles and clear to auscultation bilaterally AUSCULTATION: clear to auscultation bilaterally Cardio: COMMON NORMALS: no JVD, regular rate, regular rhythm, S1 normal heart sound present, S2 normal heart sound present, No gallops present (Cardio), No clicks present (Cardio), No murmurs present (Cardio) and No rub (Cardio) R ATE: regular rate RHYTHM: regular rhythm HEART SOUNDS: S1 normal heart sound present and S2 normal heart sound present GI: COMMON NORMALS: Normal to inspection, nondistended, normoactive bowel sounds present, Soft to palpation, non-tender, No hepatosplenomegaly present and no masses PALPATION: Yes Soft to palpation and Yes No hepatosplenomegaly present : COMMON NORMALS: Yes no CVA tenderness BLADDER/KIDNEY EXAM: Yes no CVA tenderness Back/Pelvis: COMMON NORMALS: no CVA tenderness, thoracic and lumbar spine normal to inspection, no thoracic nor lumbar tenderness, thoraco-lumbar ROM normal and straight leg raise negative bilaterally Neuro: COMMON NORMALS: patient oriented x3 SENSORIUM/ORIENTATION: Yes alert Course 2 Vital Signs: Vital signs: Vital Signs Temperature 98.0 F 11/26/23 11:47 Pulse Rate 51 L 11/26/23 13:27 Respiratory Rate 17 11/26/23 13:27 Blood Pressure 132/87 11/26/23 13:27 Pulse Oximetry 97 11/26/23 13:27 Oxygen Delivery Me thod Room Air 11/26/23 13:27 MDM - Extremity (Nontraumatic) Medical Decision Making Patient had lab work and lumbar spine x-ray, patient was given Norflex and dexamethasone IM. Lab work included CBC CMP and D-dimer all of which was benign, lumbar spine x-ray showed degenerative changes, patient will be discharged home to follow-up with his PCP. Patient will be given a prescription for meloxicam, prednisone, and Requip. Differential Diagnosis Unlikely herpes zoster, gout, cellulitis, superficial thrombophlebitis, deep venous thrombosis of upper extremity, lower extremity edema or deep vein thrombosis of lower extremity Medical Records I reviewed the patient's medical records. Lab Data I reviewed the patient's lab results. 11/26/23 12:47 11/26/23 12:47 Radiology Impressions Lumbar Spine X-Ray 11/26/23 12:19 IMPRESSION: There are degenerative changes as described above. No evidence for acute fracture. Laboratory Results WBC 6.93 10^3/uL (3.29-11.43) 11/26/23 12:47 RBC 4.97 10^6/uL (3.85-5.65) 11/26/23 12:47 Hgb 15.40 g/dL (11.27-16.99) 11/26/23 12:47 Hct 44.3 % (37-53) 11/26/23 12:47 MCV 89.1 fl (82-101) 11/26/23 12:47 MCH 31.0 pg (27-33) 11/26/23 12:47 MCHC 34.8 g/dL (30-55) 11/26/23 12:47 RDW 12.7 % (12.1-15.1) 11/26/23 12:47 Plt Count 178 10^3/cmm (157-399) 11/26/23 12:47 MPV 9.9 fL (7.4-10.4) 11/26/23 12:47 Neut % (Auto) 45.4 % 11/26/23 12:47 Lymph % (Auto) 44.3 % 11/26/23 12:47 [place] % (Auto) 7.9 % 11/26/23 12:47 Eos % (Auto) 1.4 % 11/26/23 12:47 Baso % (Auto) 0.7 % 11/26/23 12:47 Neut # (Auto) 3.14 10^3/uL (1.8-7.7) 11/26/23 12:47 Lymph # (Auto) 3.1 10^3/uL (0.8-4.8) 11/26/23 12:47 [place] # (Auto) 0.6 10^3/uL (0.2-0.9) 11/26/23 12:47 Eos # (Auto) 0.1 10^3/uL (0.0-0.8) 11/26/23 12:47 Baso # (Auto) 0.1 10^3/uL (0.0-0.1) 11/26/23 12:47 Nucleated RBC % (auto) 0 % 11/26/23 12:47 Nucleated RBCs # 0.0 /100WBC 11/26/23 12:47 D-Dimer <= 0.27 ug/mLFEU (0-0.59) 11/26/23 12:47 Sodium 137 mmol/L (136-145) 11/26/23 12:47 Potassium 4.3 mmol/L (3.5-5.1) 11/26/23 12:47 Chloride 104 mmol/L (98-107) 11/26/23 12:47 Carbon Dioxide 22 mmol/L (22-29) 11/26/23 12:47 Anion Gap 15.3 (5-19) 11/26/23 12:47 BUN 10 mg/dL (6-20) 11/26/23 12:47 Creatinine 0.9 mg/dL (0.7-1.2) 11/26/23 12:47 GFR Calculation 88.3 mL/min (90-130) L 11/26/23 12:47 Glucose 94 mg/dL (65-115) 11/26/23 12:47 Calculated Osmolality 283 mOsm/kg (285-295) L 11/26/23 12:47 Calcium 8.7 mg/dL (8.5-10.5) 11/26/23 12:47 Magnesium 2.2 mg/dL (1.7-2.3) 11/26/23 12:47 Total Bilirubin 0.3 mg/dL (0.15-1.2) 11/26/23 12:47 AST 12 U/L (0-40) 11/26/23 12:47 ALT 9 U/L (0-41) 11/26/23 12:47 Alkaline Phosphatase 66 U/L (40-130) 11/26/23 12:47 Total Protein 6.5 g/dL (6.6-8.7) L 11/26/23 12:47 Albumin 4.3 g/dL (3.5-5.2) 11/26/23 12:47 Globulin 2.2 g/dL (1.3-4.6) 11/26/23 12:47 All radiology interpretation(s) finalized by discharge Discharge Plan Discharge Patient Disposition: Home Clinical Impression: Lumbar back pain with radiculopathy affecting right lower extremity, Restless leg syndrome Condition: Stable Prescriptions: New meloxicam 7.5 mg tablet 7.5 mg PO .Twice daily Qty: 14 0RF prednisone 50 mg tablet 50 mg PO DAILY Qty: 5 0RF ropinirole 0.5 mg tablet 0.5 mg PO .qhs PRN (Reason: Restless leg syndrome) Qty: 30 0RF No Action memantine [Namenda] 5 mg tablet 5 mg PO BID cholecalciferol (vitamin D3) 50 mcg (2,000 unit) capsule 4,000 unit PO DAILY pantoprazole 40 mg tablet,delayed release (DR/EC) 40 mg PO DAILY Qty: 30 0RF Dulcolax (magnesium hydroxide) 400 mg/5 mL Suspension 60 ml PO DAILY mirtazapine 7.5 mg tablet 7.5 mg PO BEDTIME Discharge Orders: Discharge ED (Routine); Ordered 11/26/23 Ordered By: Tray Marvin Referrals: Kevin Tovar MD [Primary Care Provider] - 1 week Patient Instructions: Lumbar Radiculopathy (ED), Restless Legs Syndrome (ED), Pain Management Activity Restrictions/Additional Instructions: Your evaluation in ER showed you have arthritis of the lumbar spine. Your test was negative for a blood clot. Is felt your pain is from your lumbar spine and a possible irritation of the nerve. You have been prescribed multiple medicines please take them as directed. Please follow-up with your family practice physician within next 7 days for further evaluation and treatment. Coding Level of Care Code ED General Engineer for Willian Gramajo
[2023-11-26 12:59] LABS: Basophils # 0.1 10^3/uL (0.0-0.1); Basophils % 0.7 %; Eosinophils # 0.1 10^3/uL (0.0-0.8); Eosinophils % 1.4 %; Hematocrit 44.3 % (37-53); Lymphocytes # 3.1 10^3/uL (0.8-4.8); Lymphocytes % 44.3 %; Mean Corpuscular HGB Conc 34.8 g/dL (30-55); Mean Corpuscular Volume 89.1 fl (82-101); Mean Platelet Volume 9.9 fL (7.4-10.4); Monocytes # 0.6 10^3/uL (0.2-0.9); Monocytes % 7.9 %; Neutrophils # 3.14 10^3/uL (1.8-7.7); Neutrophils % 45.4 %; Nucleated Red Blood Cells % 0 %; Platelet Count 178 10^3/cmm (157-399); Red Blood Count 4.97 10^6/uL (3.85-5.65); Red Cell Distribution Width 12.7 % (12.1-15.1); White Blood Count 6.93 10^3/uL (3.29-11.43)
[2023-11-26] MEDS: dexamethasone 10 mg/mL INJ IM (13:12)
[2023-11-26 13:13] LABS: Alanine Aminotransferase 9 U/L (0-41); Albumin Level 4.3 g/dL (3.5-5.2); Alkaline Phosphatase 66 U/L (40-130); Aspartate Amino Transferase 12 U/L (0-40); Blood Urea Nitrogen 10 mg/dL (6-20); Calcium 8.7 mg/dL (8.5-10.5); Carbon Dioxide 22 mmol/L (22-29); Chloride 104 mmol/L (98-107); D Dimer <= 0.27 ug/mLFEU (0-0.59); Globulin 2.2 g/dL (1.3-4.6); Glomerular Filtration Rate 88.3 mL/min (90-130); Glucose 94 mg/dL (65-115); Magnesium 2.2 mg/dL (1.7-2.3); Osmolality Calculated 283 mOsm/kg (285-295); Sodium 137 mmol/L (136-145); Total Bilirubin 0.3 mg/dL (0.15-1.2); Total Protein 6.5 g/dL (6.6-8.7)
[2023-11-26] MEDS: orphenadrine 30 mg/mL Inj 2 mL 60 MG IM (13:13)
[2023-11-26 13:19] LABS: Anion Gap 15.3 (5-19); Potassium 4.3 mmol/L (3.5-5.1)
[2023-11-26 13:27] VITALS: BP 132/87; PULSE 51; RESP 17; O2SAT 97
== END 2023-11-26 13:45 | disposition home or self-care (01) ==
PROVIDERS: Emergency Provider Emergency Medicine; PCP Family Medicine
DX: M54.16 Radiculopathy, lumbar region (principal); G25.81 Restless legs syndrome; F17.210 Nicotine dependence, cigarettes, uncomplicated; F03.90 Unspecified dementia, unspecified severity, without behavioral disturbance, psychotic disturbance, mood disturbance, and anxiety
CPT/HCPCS: 36415; 72100; 80053; 83735; 85025; 85378; 96372; 99284; J1100; J2360

== ENCOUNTER → 2024-03-19 09:05 | Outpatient (BNVA) | payer MEDICARE, SELFPAY | PROVIDERS: PCP Family Medicine; Visit Provider Nurse Practitioner | DX: M19.012 Primary osteoarthritis, left shoulder; R29.898 Other symptoms and signs involving the musculoskeletal system | CPT/HCPCS: 73030; 99204 ==

== ENCOUNTER 2024-05-11 07:36 | Emergency (ER) | payer MEDICARE, SELFPAY ==
[2024-05-11 07:41] VITALS: BP 164/90; PULSE 60; RESP 18; TEMP 36.3; O2SAT 100
--- NOTE | 2024-05-11 07:46 | XR_ITS ---
WS: [id number] Examination: XR chest 1V portable [id number] Reason for Exam: dyspnea/cough Date: 05/11/2024 Comparison: 06/16/2023 Findings: The heart is normal in size. The mediastinum is not widened. There is no pulmonary edema or pleural effusion. There is no dense consolidation. XR/XR chest 1V portable [id number] Impression: No acute lung process is seen.
--- NOTE | 2024-05-11 07:47 | ED_ITS ---
HPI - Anxiety 2 General: Chief Complaint: Anxiety Stated Complaint: Chest Pains, Sob, numb hands Time Seen by Provider: 05/11/24 07:46 History of Present Illness: 54-year-old male presents emergency room complaining of anxiety. He states he has had panic attacks in the past feels the same is also having some chest pressure and some shortness of breath. No fever sweats or chills or productive cough. No radiation into the neck arms or back. No known history of coronary artery disease. Associated symptoms: Reports chest pain; Deny chills or fever(s) Related Data Home Medications Medication Instructions Recorded Confirmed magnesium hydroxide 400 mg/5 mL 60 ml PO DAILY 11/26/23 05/11/24 oral suspension (Dulcolax (magnesium hydroxide)) diclofenac sodium 1 % topical gel 2 g topical QID PRN joint pain 05/11/24 05/11/24 tramadol 100 mg tablet 100 mg PO Q8H PRN Pain 05/11/24 05/11/24 Previous Rx's Medication Instructions Recorded pantoprazole 40 mg tablet,delayed 40 mg PO DAILY #30 tabs 06/16/23 release buspirone 7.5 mg tablet 7.5 mg PO BID #60 tabs 05/11/24 hydroxyzine HCl 25 mg tablet 25 mg PO TID PRN anxiety #14 tabs 05/11/24 Allergies Allergy/AdvReac Type Severity Reaction Status Date / Time hydrocodone Allergy Nausea Verified 03/19/24 09:13 Review of Systems 2 Const: Denies: fever(s) or chills Card: Reports: chest pain Resp: Denies: dyspnea GI: Denies: abdominal pain : Denies: dysuria, urinary frequency or urinary urgency Musc: Denies: neck pain or back pain Skin/Breast: Denies: rash PFSH ED 2 PFSH: Medical History Weakness of left shoulder Primary osteoarthritis, left shoulder Psychiatric care Homelessness Hypersomnia Chronic post-traumatic stress disorder Panic disorder without agoraphobia Schizotypal disorder Bipolar I disorder, current or most recent episode depressed, with psychotic features 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 Orthostatic hypotension Syncope Coughing up blood TBI (traumatic brain injury) Benzodiazepine abuse in remission In early remission Nicotine dependence, cigarettes, uncomplicated Cannabis dependence, continuous Generalized anxiety disorder Major depressive disorder, recurrent episode with mood-congruent psychotic features Anxiety Dementia Depression Family History Other CAD (coronary artery disease) Cancer Diabetes Hypertension Denies family history of Stroke Social History Smoking and tobacco/nicotine status: current every day tobacco/nicotine user cigarettes Packs smoked per day: 0.5 Years cigarettes smoked: 36 Quit status (tobacco/nicotine): considering quitting Second hand smoke exposure: Yes Alcohol intake: never Substance/Drug Use: never Current gender identity: Male Physical Exam 2 Const: ORIENTATION/CONSCIOUSNESS: Yes awake, Yes oriented to person, Yes oriented to place and Yes oriented to time HENMT: COMMON NORMALS: normocephalic, atraumatic and hearing grossly normal bilaterally HEAD & SCALP: normocephalic and atraumatic Resp: COMMON NORMALS: normal respiratory effort, No retractions, No use of accessory muscles and clear to auscultation bilaterally AUSCULTATION: clear to auscultation bilaterally Cardio: COMMON NORMALS: regular rate, regular rhythm and No murmurs present (Cardio) RATE: regular rate RHYTHM: regular rhythm GI: COMMON NORMALS: Soft to palpation and No hepatosplenomegaly present A USCULTATION: Yes normoactive bowel sounds PALPATION: Yes Soft to palpation, No Tenderness to palpation present (GI), No Guarding due to palpation present (GI) and Yes No hepatosplenomegaly present Extremity: COMMON NORMALS: normal to inspection, capillary refill normal, no clubbing, cyanosis or edema, no calf tenderness and no pedal edema Neuro: SENSORIUM/ORIENTATION: Yes oriented to person, Yes oriented to place and Yes oriented to time Skin: COMMON NORMALS: no rashes or lesions noted GENERAL SKIN EXAM: no rashes or lesions noted Course 2 Vital Signs: Vital signs: Vital Signs Temperature 97.4 F L 05/11/24 07:50 Pulse Rate 75 05/11/24 11:00 Respiratory Rate 18 05/11/24 09:22 Blood Pressure 142/81 05/11/24 11:00 Pulse Oximetry 97 05/11/24 11:00 Oxygen Delivery Me thod Room Air 05/11/24 07:50 Clincial Decision Support The following clinical decision support tools were used to aid in care of the patient HEART Score -> History: Slightly Suspicous, EKG: Normal, Age: 45-64 yrs, Risk Factors: No Risk Factors Known, Troponin: Baseline Trop <16 ng/L. Resulting HEART Score: 1. MDM - Anxiety Medical Decision Making Patient's hemoglobin slightly elevated for several mildly elevated neutrophil count. He is ABG shows hyperventilation. Chest x-ray should not show any abnormality. No sign of infection at this time he has no fever. His symptoms have resolved he still is feeling little bit of anxiousness [facility]. Will discharge him home with hydroxyzine started on Wellbutrin have him follow-up with his primary care doctor, could also establish with [facility]. Medical Records I reviewed the patient's medical records. Lab Data I reviewed the patient's lab results. 05/11/24 07:46 05/11/24 07:46 Radiology Impressions Chest X-Ray 05/11/24 07:46 Impression: No acute lung process is seen. Laboratory Results WBC 13.13 10^3/uL (3.29-11.43) H 05/11/24 07:46 RBC 5.83 10^6/uL (3.85-5.65) H 05/11/24 07:46 Hgb 17.70 g/dL (11.27-16.99) H 05/11/24 07:46 Hct 51.2 % (37-53) 05/11/24 07:46 MCV 87.8 fl (82-101) 05/11/24 07:46 MCH 30.4 pg (27-33) 05/11/24 07:46 MCHC 34.6 g/dL (30-55) 05/11/24 07:46 RDW 13.0 % (12.1-15.1) 05/11/24 07:46 Plt Count 298 10^3/cmm (157-399) 05/11/24 07:46 MPV 9.8 fL (7.4-10.4) 05/11/24 07:46 Neut % (Auto) 83.4 % 05/11/24 07:46 Lymph % (Auto) 12.3 % 05/11/24 07:46 Atkinson % (Auto) 3.7 % 05/11/24 07:46 Eos % (Auto) 0.2 % 05/11/24 07:46 Baso % (Auto) 0.2 % 05/11/24 07:46 Neut # (Auto) 10.93 10^3/uL (1.8-7.7) H 05/11/24 07:46 Lymph # (Auto) 1.6 10^3/uL (0.8-4.8) 05/11/24 07:46 Atkinson # (Auto) 0.5 10^3/uL (0.2-0.9) 05/11/24 07:46 Eos # (Auto) 0.0 10^3/uL (0.0-0.8) 05/11/24 07:46 Baso # (Auto) 0.0 10^3/uL (0.0-0.1) 05/11/24 07:46 Nucleated RBC % (auto) 0 % 05/11/24 07:46 Nucleated RBCs # 0.0 /100WBC 05/11/24 07:46 Specimen Type Arterial 05/11/24 08:07 Sample Site Radial, right 05/11/24 08:07 ABG pH 7.50 (7.35-7.45) H 05/11/24 08:07 ABG pCO2 32.5 mmHg (35-45) L 05/11/24 08:07 ABG pO2 76.7 mmHg (80.0-100.0) L 05/11/24 08:07 ABG PO2/FiO2 Ratio 365 05/11/24 08:07 ABG HCO3 25.4 mmol/L (22-26) 05/11/24 08:07 ABG O2 Saturation 97.5 05/11/24 08:07 ABG Base Excess 2.9 mmol/L (-2.0-2.0) H 05/11/24 08:07 Tex Test Pos 05/11/24 08:07 A-a O2 Gradient 4.2 mmHg (5-10) L 05/11/24 08:07 Hematocrit 50.4 % (42-52) 05/11/24 08:07 Hgb O2 Saturation 94.5 % (95-100) L 05/11/24 08:07 Carboxyhemoglobin 3.1 %THgb (0.4-20.1) 05/11/24 08:07 Methemoglobin 0.0 % (0.4-1.5) L 05/11/24 08:07 Total Hemoglobin 16.5 g/dL (14-18) 05/11/24 08:07 Sodium 141.0 mmol/L (131-143) 05/11/24 08:07 Potassium 3.4 mmol/L (3.5-5.0) L 05/11/24 08:07 Glucose 125.0 mg/dL (70-115) H 05/11/24 08:07 Ionized Calcium 1.2 mmol/L (1.1-1.4) 05/11/24 08:07 O2 Delivery Device Room air 05/11/24 08:07 FiO2 21.0 % 05/11/24 08:07 Pensions Retirement Plan Specialist ID [place]ro 05/11/24 08:07 Sodium 140 mmol/L (136-145) 05/11/24 07:46 Potassium 4.1 mmol/L (3.5-5.1) 05/11/24 07:46 Chloride 103 mmol/L (98-107) 05/11/24 07:46 Carbon Dioxide 23 mmol/L (22-29) 05/11/24 07:46 Anion Gap 18.1 (5-19) 05/11/24 07:46 BUN 16 mg/dL (6-20) 05/11/24 07:46 Creatinine 0.8 mg/dL (0.7-1.2) 05/11/24 07:46 GFR Calculation 100.7 mL/min (90-130) 05/11/24 07:46 Glucose 136 mg/dL (65-115) H 05/11/24 07:46 Calculated Osmolality 293 mOsm/kg (285-295) 05/11/24 07:46 Calcium 9.6 mg/dL (8.5-10.5) 05/11/24 07:46 Total Bilirubin 0.4 mg/dL (0.15-1.2) 05/11/24 07:46 AST 11 U/L (0-40) 05/11/24 07:46 ALT 10 U/L (0-41) 05/11/24 07:46 Alkaline Phosphatase 81 U/L (40-130) 05/11/24 07:46 Troponin T Baseline < 6 ng/L (0-15) 05/11/24 07:46 Troponin T 120 Minute 6.00 ng/L (0-15) 05/11/24 09:36 Delta Troponin T 0.30074 ABS# (0-10) 05/11/24 09:36 Total Protein 7.0 g/dL (6.6-8.7) 05/11/24 07:46 Albumin 5.0 g/dL (3.5-5.2) 05/11/24 07:46 Globulin 2.0 g/dL (1.3-4.6) 05/11/24 07:46 All radiology interpretation(s) finalized by discharge Discharge Plan Discharge Patient Disposition: Home Clinical Impression: Acute anxiety, Hyperventilation Condition: Stable Prescriptions: New buspirone 7.5 mg tablet 7.5 mg PO BID Qty: 60 0RF hydroxyzine HCl 25 mg tablet 25 mg PO TID PRN (Reason: anxiety) Qty: 14 0RF No Action tramadol 100 mg tablet 100 mg PO Q8H PRN (Reason: Pain) diclofenac sodium 1 % gel 2 g topical QID PRN (Reason: joint pain) Rx Instructions: apply to single elbow, wrist or hand; for hand includes palm/fingers/back of hand pantoprazole 40 mg tablet,delayed release (DR/EC) 40 mg PO DAILY Qty: 30 0RF magnesium hydroxide [Dulcolax (magnesium hydroxide)] 400 mg/5 mL Suspension 60 ml PO DAILY Discharge Orders: Discharge ED (Routine); Ordered 05/11/24 Ordered By: Edd Ruelas Referrals: Kevin Tovar MD [Primary Care Provider] - Discharge Diet: Usual diet Discharge Activity: Resume usual activity Patient Instructions: Hyperventilation (ED), Anxiety (ED), Opioid Safety, Pain Management Activity Restrictions/Additional Instructions: Thank you for choosing [facility] for your healthcare needs today. It is very important that you follow up as instructed or that you return to the Emergency Department should you have concerns or if your condition changes or worsens in any way. Recommend he follow-up with your primary care doctor as well as establishing at [facility] for management of your anxiety issues Coding Level of Care Code ED Ceramic Worker for Willian Gramajo
--- NOTE | 2024-05-11 07:47 | ECG_ITS ---
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 Measurements Intervals [place] Rate: 59 P: 75 CT: 143 QRS: 90 QRSD: 101 T: 57 QT: 388 QTc: 387 Interpretive Statements SINUS BRADYCARDIA POSSIBLE LEFT ATRIAL ENLARGEMENT [-0.1mV P-WAVE IN V1/V2] INTERPRETATION BASED ON A DEFAULT AGE OF 40 YEARS Compared to ECG 06/16/2023 11:46:52 No significant changes Electronically Signed On 05-11-2024 17:01:43 CDT by Matthieu Jauregui M.D. [email or web address] Shipping [id number] f
[2024-05-11 07:50] VITALS: BP 164/90; PULSE 60; RESP 18; TEMP 36.3; O2SAT 100
[2024-05-11 07:59] LABS: Basophils % 0.2 %; Eosinophils % 0.2 %; Hematocrit 51.2 % (37-53); Lymphocytes # 1.6 10^3/uL (0.8-4.8); Lymphocytes % 12.3 %; Mean Corpuscular HGB Conc 34.6 g/dL (30-55); Mean Corpuscular Hemoglobin 30.4 pg (27-33); Mean Corpuscular Volume 87.8 fl (82-101); Mean Platelet Volume 9.8 fL (7.4-10.4); Monocytes # 0.5 10^3/uL (0.2-0.9); Monocytes % 3.7 %; Neutrophils # 10.93 10^3/uL (1.8-7.7); Neutrophils % 83.4 %; Nucleated Red Blood Cells % 0 %; Platelet Count 298 10^3/cmm (157-399); Red Blood Count 5.83 10^6/uL (3.85-5.65); White Blood Count 13.13 10^3/uL (3.29-11.43)
[2024-05-11] MEDS: LORazepam 2 mg/mL INJ 1 mL 1 MG IVP (08:04)
[2024-05-11] MEDS: aspirin 81 mg Chew Tablet 324 MG PO (08:05)
[2024-05-11 08:19] LABS: ABG PCO2 32.5 mmHg (35-45); Alveolar-Arterial Oxygen Gradi 4.2 mmHg (5-10); Arterial Blood Gas Hematocrit 50.4 % (42-52); Base Excess ABG 2.9 mmol/L (-2.0-2.0); Blood Gas Allen Test Pos; Blood Gas Operator Identificat MONRO; Blood Gas Sample Site Radial, right; Blood Gas Sample Type Arterial; Carboxyhemoglobin 3.1 %THgb (0.4-20.1); HCO3 ABG 25.4 mmol/L (22-26); HGB O2 Sat 94.5 % (95-100); Ionized Calcium Level - ABG 1.2 mmol/L (1.1-1.4); Oxygen Device ROOM AIR; Oxygen Saturation ABG 97.5; PO2 ABG 76.7 mmHg (80.0-100.0); PO2 FiO2 Ratio Arterial Blood 365; Potassium Level - ABG 3.4 mmol/L (3.5-5.0); Total Hemoglobin 16.5 g/dL (14-18)
[2024-05-11 08:26] LABS: Alanine Aminotransferase 10 U/L (0-41); Alkaline Phosphatase 81 U/L (40-130); Anion Gap 18.1 (5-19); Aspartate Amino Transferase 11 U/L (0-40); Blood Urea Nitrogen 16 mg/dL (6-20); Calcium 9.6 mg/dL (8.5-10.5); Carbon Dioxide 23 mmol/L (22-29); Chloride 103 mmol/L (98-107); Creatinine Clr Calc Pharmacy 103.3212; Glomerular Filtration Rate 100.7 mL/min (90-130); Glucose 136 mg/dL (65-115); Osmolality Calculated 293 mOsm/kg (285-295); Potassium 4.1 mmol/L (3.5-5.1); Sodium 140 mmol/L (136-145); Total Bilirubin 0.4 mg/dL (0.15-1.2); Troponin(5th) Baseline < 6 ng/L (0-15)
[2024-05-11 09:22] VITALS: BP 122/70; PULSE 64; RESP 18; O2SAT 95
--- NOTE | 2024-05-11 09:47 | ECG_ITS ---
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 Measurements Intervals [place] Rate: 55 P: 76 NH: 157 QRS: 90 QRSD: 101 T: 59 QT: 390 QTc: 376 Interpretive Statements SINUS BRADYCARDIA POSSIBLE LEFT ATRIAL ENLARGEMENT [-0.1mV P-WAVE IN V1/V2] Compared to ECG 05/11/2024 07:41:01 No significant changes Electronically Signed On 05-11-2024 17:10:38 CDT by Matthieu Jauregui M.D. [id number]
[2024-05-11 10:01] LABS: Troponin 5 2HR Delta 0.00001 ABS# (0-10)
[2024-05-11] MEDS: hyDROXYzine 25 mg Capsule PO (10:14)
--- NOTE | 2024-05-11 10:34 | PC.PHAR ---
Pt states no lnoger takes the following medications: Meloxicam 7.5mg twice daily, Namenda 5mg twice daily, Mirtazapine 7.5mg at bedtime, and Ropinerole 0.5mg at bedtime.
[2024-05-11 11:00] VITALS: BP 142/81; PULSE 75; O2SAT 97
== END 2024-05-11 11:00 | disposition home or self-care (01) ==
PROVIDERS: Emergency Provider Family Medicine; PCP Family Medicine
DX: F41.9 Anxiety disorder, unspecified (principal); R06.4 Hyperventilation; F17.210 Nicotine dependence, cigarettes, uncomplicated; F03.90 Unspecified dementia, unspecified severity, without behavioral disturbance, psychotic disturbance, mood disturbance, and anxiety; Z87.820 Personal history of traumatic brain injury
CPT/HCPCS: 36415; 36600; 71045; 80051; 80053; 82330; 82805; 84484; 85025; 93005; 96374; 99285; J2060